=== PATIENT | female | born 1950 | race Caucasian/White ===

== ENCOUNTER 2017-04-24 20:04 | Inpatient (IN) | payer MEDICARE ==
[~2017-04-24] VITALS: Ht 162.6 cm; Wt 73.0 kg
[2017-04-24 20:11] VITALS: BP 152/67; PULSE 97; RESP 18; O2SAT 93
[2017-04-24 20:21] VITALS: TEMP 101
--- NOTE | 2017-04-24 20:22 | PD ---
HPI Chief Complaint: Altered Mental Status Time Seen by Provider: 20:22 Travel History International Travel<30 days: No Contact w/Intl Traveler<30days: No Traveled to known affect area: No History of Present Illness HPI 66-year-old female presents to the emergency department via EMS for evaluation of a fall and fever. Apparently, the patient is running fever for a few days. Today, she was found on the floor by her recliner chair by a family member. The patient states she tripped and fell. She does state that she had her head and is unsure if she lost consciousness. The patient is confused. She knows her name, but does not answer other questions appropriately. The patient denies any neck pain or back pain. No chest pain or abdominal pain. No nausea or vomiting. When family arrived, I was able to obtain more history. According to the daughter, the granddaughter was at home and witnessed the patient's fall. She slid out of her recliner was unable to get up. She blew she's been running fevers for approximately 2 days. She states that she recently came from [place] and she is unsure she is on on her medications. However, she is currently taking metoprolol. The daughter states that she has a history of dementia and hypertension. She states that the patient goes in and out of confusion. PFSH Past Medical History Cardiovascular Problems: Yes (HTN) Diabetes: Yes Social History Alcohol Use: No Tobacco Use: No Substance Use: No Allergies-Medications (Allergen,Severity, Reaction): Coded Allergies: Codeine (Verified Allergy, Unknown, 04/24/17) Reported Meds & Prescriptions Reported Meds & Active Scripts Active Reported Metoprolol Tartrate 37.5 Mg Tab 37.5 Mg PO DAILY Review of Systems Except as stated in HPI: all other systems reviewed are Neg Physical Exam Narrative GENERAL: Well-nourished, well-developed female patient, temp 101.1 rectally. SKIN: Focused skin assessment warm/dry. HEAD: Normocephalic. Atraumatic. EYES: No scleral icterus. No injection or drainage. NECK: Supple, trachea midline. No JVD or lymphadenopathy. CARDIOVASCULAR: Regular rate and rhythm without murmurs, gallops, or rubs. RESPIRATORY: Breath sounds equal bilaterally. No accessory muscle use. Lungs sounds are clear to auscultation. GASTROINTESTINAL: Abdomen soft, non-tender, nondistended. MUSCULOSKELETAL: No cyanosis, or edema. BACK: Nontender without obvious deformity. No CVA tenderness. Data Data Last Documented VS Vital Signs Date Time Temp Pulse Resp B/P Pulse Ox O2 Delivery O2 Flow Rate FiO2 04/24/17 22:20 99.1 89 18 158/67 95 Room Air Orders Complete Blood Count With Diff (04/24/17 20:19) Comprehensive Metabolic Panel (04/24/17 20:19) Creatine Kinase (Cpk) (04/24/17 20:19) Prothrombin Time / Inr (Pt) (04/24/17 20:19) Act Partial Throm Time (Ptt) (04/24/17 20:19) Urinalysis - C+S If Indicated (04/24/17 20:19) Lactic Acid Sepsis Protocol (04/24/17 20:19) Blood Culture (04/24/17 20:19) Chest, Single Ap (04/24/17 20:19) Ct Brain W/O Iv Contrast(Rout) (04/24/17 20:19) Blood Glucose (04/24/17 20:19) Ecg Monitoring (04/24/17 20:19) Iv Access Insert/Monitor (04/24/17 20:19) Oximetry (04/24/17 20:19) Ct Cerv Spine W/O Contrast (04/24/17 ) Cath For Specimen (04/24/17 20:19) Acetaminophen Supp (Tylenol Supp) (04/24/17 20:30) Electrocardiogram (04/24/17 ) Sodium Chlorid 0.9% 500 Ml Inj (Ns 500 M (04/24/17 20:30) Ceftriaxone Inj (Rocephin Inj) (04/24/17 21:00) Azithromycin Inj (Zithromax Inj) (04/24/17 21:00) Admit Order (Ed Use Only) (04/24/17 22:25) Labs Laboratory Tests Test 04/24/17 20:25 White Blood Count 7.1 TH/MM3 Red Blood Count 4.23 MIL/MM3 Hemoglobin 13.1 GM/DL Hematocrit 39.2 % Mean Corpuscular Volume 92.7 FL Mean Corpuscular Hemoglobin 30.9 PG Mean Corpuscular Hemoglobin 33.3 % Concent Red Cell Distribution Width 14.3 % Platelet Count 180 TH/MM3 Mean Platelet Volume 8.0 FL Neutrophils (%) (Auto) 85.3 % Lymphocytes (%) (Auto) 7.3 % Monocytes (%) (Auto) 6.8 % Eosinophils (%) (Auto) 0.2 % Basophils (%) (Auto) 0.4 % Neutrophils # (Auto) 6.0 TH/MM3 Lymphocytes # (Auto) 0.5 TH/MM3 Monocytes # (Auto) 0.5 TH/MM3 Eosinophils # (Auto) 0.0 TH/MM3 Basophils # (Auto) 0.0 TH/MM3 CBC Comment DIFF FINAL Differential Comment Prothrombin Time 11.2 SEC Prothromb Time International 1.0 RATIO Ratio Activated Partial 27.3 SEC Thromboplast Time Urine Color YELLOW Urine Turbidity CLEAR Urine pH 6.0 Urine Specific Center 1.020 Urine Protein TRACE mg/dL Urine Glucose (UA) NEG mg/dL Urine Ketones 40 mg/dL Urine Occult Blood NEG Urine Nitrite NEG Urine Bilirubin NEG Urine Urobilinogen LESS THAN 2.0 MG/DL Urine Leukocyte Esterase NEG Urine RBC 1 /hpf Urine WBC 2 /hpf Urine Squamous Epithelial <1 /hpf Cells Urine Granular Casts 5 /lpf Urine Mucus FEW /lpf Microscopic Urinalysis Comment CATH-CULT NOT IND Sodium Level 143 MEQ/L Potassium Level 3.5 MEQ/L Chloride Level 108 MEQ/L Carbon Dioxide Level 24.5 MEQ/L Anion Gap 11 MEQ/L Blood Urea Nitrogen 16 MG/DL Creatinine 0.63 MG/DL Estimat Glomerular Filtration 95 ML/MIN Rate Random Glucose 117 MG/DL Lactic Acid Level 1.0 mmol/L Calcium Level 8.4 MG/DL Total Bilirubin 0.5 MG/DL Aspartate Amino Transf 34 U/L (AST/SGOT) Alanine Aminotransferase 23 U/L (ALT/SGPT) Alkaline Phosphatase 91 U/L Total Creatine Kinase 159 U/L Total Protein 6.5 GM/DL Albumin 3.2 GM/DL MDM Medical Decision Making Medical Screen Exam Complete: Yes Emergency Medical Condition: Yes Medical Record Reviewed: Yes Interpretation(s) Last Impressions Head CT 04/24/172018 Signed Impressions: Service Date/Time: Monday, April 24, 2017 20:40 - CONCLUSION: Negative noncontrast CT brain. Alexis Acevedo MD Chest X-Ray 04/24/172018 Signed Impressions: Service Date/Time: Monday, April 24, 2017 20:17 - CONCLUSION: Bilateral perihilar and left lower lung no consolidative infiltrates. Alexis Acevedo MD Cervical Spine CT 04/24/17 0000 Signed Impressions: Service Date/Time: Monday, April 24, 2017 20:40 - CONCLUSION: No evidence of compression fracture or spondylolisthesis. Reversal of the upper mid cervical lordosis and hypertrophic degenerative changes in the facet joints without significant bony neural foraminal stenosis. Alexis Acevedo MD Differential Diagnosis Pneumonia versus UTI versus sepsis versus intracranial normality for selection abnormality Narrative Course 66-year-old female presents to the emergency department for evaluation after falling is running a fever. EKG shows sinus rhythm, heart rate 97, no acute ST changes. CBC, CMP, CK, PTT, PTT/INR, UA, lactic acid, blood cultures 2, chest x-ray are ordered and pending. CT the brain and cervical spine are ordered and pending. Patient is given normal saline 500 mL bolus. She received normal saline 400 mL's prior to arrival. Tylenol 650 mg suppository is ordered and pending. EKG shows sinus rhythm, heart rate 97, no acute ST changes. CBC shows WBC of 7.1, neutrophilia of 85.3. CMP shows no acute abnormality. CK is 159. Lactic acid is 1.0. Coags are unremarkable. UA is negative for acute infection. Chest x-ray shows bilateral perihilar and left lower lung no consolidative infiltrates. Ct of the brain is negative. CT of the cervical spine shows no evidence of compression fracture or spondylolisthesis. Patient is given Rocephin 1 g IV and azithromycin 500 mg IV. [facility] is paged for admission. Dr. Fong accepted admission. Sepsis Criteria SIRS Criteria (2 or more): Temp > 100.9 or < 96.8, Heart rate over 90 Sepsis Criteria (SIRS+source): Infect source susp/known Diagnosis Primary Impression: Pneumonia Qualified Code: J18.9 - Pneumonia of both lungs due to infectious organism, unspecified part of lung Additional Impression: Sepsis Qualified Code: A41.9 - Sepsis, due to unspecified organism Admitting Information Admitting Physician Requests: Admit Katherin Weston Apr 24, 2017 20:22 Katherin Weston Apr 24, 2017 20:22
[2017-04-24 20:24] VITALS: O2SAT 93
[2017-04-24] MEDS ORDERED: ACETAMINOPHEN 650 MG SUPP RECTAL ONE (20:30)
[2017-04-24] MEDS ORDERED: SODIUM CHLORIDE 0.9% FLUSH 5 ML FLUSH IV FLUSH PRN (20:30)
[2017-04-24] MEDS ORDERED: SODIUM CHLORID 0.9% 500 ML INJ 500 ML IV ONE (20:30)
--- NOTE | 2017-04-24 20:50 | RADRPT ---
EXAM DATE/TIME: 04/24/2017 20:17 [facility] COMPARISON: No previous studies available for comparison. INDICATIONS : Fever MEDICAL HISTORY : None. SURGICAL HISTORY : None. ENCOUNTER: Initial ACUITY: 1 day PAIN SCORE: 0/10 LOCATION: chest FINDINGS: There is fullness and indistinctness of the central bronchopulmonary markings. There is also non-con solidative infiltrate in the retrocardiac left lower lung. Portion of the lateral left hemidiaphragm is obscured. The right hemidiaphragm is well delineated. The heart is mildly enlarged. Loop recor fan device projects over the lower lateral left chest. CONCLUSION: Bilateral perihilar and left lower lung no consolidative infiltrates. Alexis Acevedo MD on April 24, 2017 at 20:48 Board Certified Radiologist. This report was verified electronically.
[2017-04-24 20:53] LABS: BASOPHIL % 0.4 % (0.0-2.0); EOSINOPHIL % 0.2 % (0.0-4.0); HEMATOCRIT 39.2 % (35.0-46.0); HEMO FLAGS DIFF FINAL; LYMPH % 7.3 % (9.0-44.0); LYMPHOCYTE # 0.5 TH/MM3 (1.0-4.8); MEAN CELL VOLUME 92.7 FL (80.0-100.0); MEAN CORPUSCULAR HEMOGLOBIN 30.9 PG (27.0-34.0); MEAN CORPUSCULAR HGB CONC 33.3 % (32.0-36.0); MONO % 6.8 % (0.0-8.0); NEUT % 85.3 % (16.0-70.0); PLATELET COUNT 180 TH/MM3 (150-450); RED BLOOD COUNT 4.23 MIL/MM3 (4.00-5.30); RED CELL DISTRIBUTION WIDTH 14.3 % (11.6-17.2); WHITE BLOOD COUNT 7.1 TH/MM3 (4.0-11.0)
[2017-04-24 20:56] VITALS: BP 164/72; PULSE 95; RESP 18; O2SAT 93
[2017-04-24] MEDS ORDERED: SODIUM CHLORIDE 0.9% FLUSH 10 ML FLUSH IVF PRN (21:00)
[2017-04-24] MEDS ORDERED: AZITHROMYCIN INJ 500 MG in SODIUM CHLOR 0.9% 250 ML INJ 250 ML IV ONE (21:00)
[2017-04-24] MEDS ORDERED: cefTRIAXone INJ 1,000 MG in SODIUM CHLORIDE 0.9% INJ 100 ML IV ONE (21:00)
--- NOTE | 2017-04-24 21:05 | RADRPT ---
EXAM DATE/TIME: 04/24/2017 20:40 [facility] COMPARISON: No previous studies available for comparison. INDICATIONS : Possible fall, found on floor. Altered mental status. RADIATION DOSE: 47.76 CTDIvol (mGy) MEDICAL HISTORY : Dementia. Hypertension. Diabetes. SURGICAL HISTORY : None. ENCOUNTER: Initial ACUITY: 1 day PAIN SCALE: 0/10 LOCATION: cranial TECHNIQUE: Multiple contiguous axial images were obtained of the head. Using automated exposure control and adj ustment of the mA and/or kV according to patient size, radiation dose was kept as low as reasonably a chievable to obtain optimal diagnostic quality images. DICOM format image data is available electro nically for review and comparison. FINDINGS: CEREBRUM: The ventricles are normal for age. No evidence of midline shift, mass lesion, hemorrhage or acute in farction. No extra-axial fluid collections are seen. POSTERIOR FOSSA: The cerebellum and brainstem are intact. The 4th ventricle is midline. The cerebellopontine angle i s unremarkable. EXTRACRANIAL: The visualized portion of the orbits is intact. SKULL: The calvaria is intact. No evidence of skull fracture. CONCLUSION: Negative noncontrast CT brain. Alexis Acevedo MD on April 24, 2017 at 21:03 Board Certified Radiologist. This report was verified electronically.
[2017-04-24 21:06] LABS: APTT (PATIENT) 27.3 SEC (24.3-30.1); PROTHROMBIN TIME - PATIENT 11.2 SEC (9.8-11.6)
[2017-04-24 21:12] LABS: BLOOD, URINE NEG (NEG); GLUCOSE,URINE NEG (NEG); GRANULAR CAST, URINE 5 /lpf; KETONE, URINE 40 mg/dL (NEG); MUCUS URINE FEW /lpf (OCC); NITRITE,URINE NEG (NEG); SQUAMOUS EPITHELIAL CELL URINE <1 /hpf (0-5); URINE COLOR YELLOW (YELLW/STRAW)
[2017-04-24 21:13] LABS: COMMENT (UR) CATH-CULT NOT IND; CULTURE IF INDICATED CATH CULTURE NOT IND
--- NOTE | 2017-04-24 21:14 | RADRPT ---
EXAM DATE/TIME: 04/24/2017 20:40 [facility] COMPARISON: No previous studies available for comparison. INDICATIONS : Possible fall, found on floor. Altered mental status. RADIATION DOSE: 42.99 CTDIvol (mGy) MEDICAL HISTORY : Dementia. Hypertension. Diabetes. SURGICAL HISTORY : None. ENCOUNTER: Initial ACUITY: 1 day PAIN SCALE: 0/10 LOCATION: neck TECHNIQUE: Volumetric scanning of the cervical spine was performed. Multiplanar reconstructions in the sagittal, coronal and oblique axial planes were performed. Using automated exposure control and adjustment o f the mA and/or kV according to patient size, radiation dose was kept as low as reasonably achievable to obtain optimal diagnostic quality images. DICOM format image data is available electronically f or review and comparison. FINDINGS: There is reversal of the cervical lordosis from C2-C5. No evidence of spondylolisthesis. Vertebral body height is maintained. The atlantoaxial articulation is intact. There is moderate severity hype rtrophic changes in the facet joints bilaterally from C2-C5. No evidence of locked or perched facets . The spinous processes are intact. C2-C3: No fracture seen. Neural foramina are patent. C3-C4: No fracture seen. Neural foramina are patent. C4-C5: No fracture seen. Neural foramina are patent. C5-C6: No fracture seen. Neural foramina are patent. C6-C7: No fracture seen. Neural foramina are patent. C7-T1: No fracture seen. Neural foramina are patent. CONCLUSION: No evidence of compression fracture or spondylolisthesis. Reversal of the upper mid cervical lordosi s and hypertrophic degenerative changes in the facet joints without significant bony neural foraminal stenosis. Alexis Acevedo MD on April 24, 2017 at 21:09 Board Certified Radiologist. This report was verified electronically.
[2017-04-24 21:15] LABS: ALT (GPT) 23 U/L (10-53)
[2017-04-24 21:35] LABS: ALKALINE PHOSPHATASE 91 U/L (45-117); ANION GAP 11 MEQ/L (5-15); AST (GOT) 34 U/L (15-37); BICARBONATE 24.5 MEQ/L (21.0-32.0); BLOOD UREA NITROGEN 16 MG/DL (7-18); CHLORIDE 108 MEQ/L (98-107); CREATINE KINASE 159 U/L (26-192); GLOMERULAR FILTRATION RATE 95 ML/MIN (>89); SODIUM (NA) 143 MEQ/L (136-145); TOTAL BILIRUBIN ADULT 0.5 MG/DL (0.2-1.0)
[2017-04-24 21:36] LABS: POTASSIUM 3.5 MEQ/L (3.5-5.1)
[2017-04-24 22:20] VITALS: BP 158/67; PULSE 89; RESP 18; TEMP 99.1; O2SAT 95
[2017-04-24] MEDS ORDERED: SODIUM CHLORIDE 0.9% FLUSH 10 ML FLUSH IV FLUSH PRN (22:45)
[2017-04-24] MEDS ORDERED: NALOXONE HCL 0.4 MG/ML AMP IV PRN (22:45)
[2017-04-24] MEDS ORDERED: METO-424 PO (22:51)
--- NOTE | 2017-04-24 22:51 | HHI.HP ---
HPI Service [facility] Primary Care Physician No Primary Care Physician Admission Diagnosis pneumonia, sepsis Diagnoses: Chief Complaint: fall at home, and fevers Travel History International Travel<30 Days: No Contact w/Intl Traveler <30 Da: No Traveled to Known Affected Are: No Sepsis Criteria SIRS Criteria (2 or more): Temp > 100.9 or < 96.8, Heart rate over 90 Sepsis Criteria (SIRS+source): Infect source susp/known History of Present Illness Written by ABDI Greenfield acting as scribe for [Hetal] on 04/24/17 at 22: 45. 66 y/o female with a history of dementia and HTN was brought to the ED due to a fall and fevers at home. Patient is only oriented to self, and seems confused on and off, review of history and systems is difficult and likely unreliable. There is no family at bedside for questioning. She states she has been having fevers, nausea, diarrhea and black stools, unsure of reliability. She denies falling down or hitting her head. Denies any chest pain or sob. She is able to state she takes metoprolol for hypertension but unknown dose. Per [employer], patient did say she remembers falling and the granddaughter found her on the floor. For the past 2 days family states she has been having fevers and has noticed swelling in her legs and face. She has just recently been living with family, unsure for how long. Review of Systems ROS Limitations: Poor Historian Past Family Social History Past Medical History Dementia HTN Past Surgical History Eye surgery Right forearm surgery Reported Medications Reported Meds & Active Scripts Active Active Prescriptions or Reported Medications Unobtainable Allergies: Coded Allergies: Codeine (Verified Allergy, Unknown, 04/24/17) Active Ordered Medications Current Medications Medications (Trade) Dose Ordered Sig/Radha Route Start Time Stop Time Status Last Admin (NS Flush) 2 ml UNSCH PRN IV FLUSH 04/24/17 22:45 (NS Flush) 2 ml BID IV FLUSH 04/25/17 09:00 Naloxone HCl 0.4 mg 0.4 mg UNSCH PRN IV 04/24/17 22:45 Ceftriaxone Sodium 2000 mg/ Sodium Chloride 100 ml @ 200 mls/hr Q24H IV 04/25/17 21:00 (Zithromax Inj/ NS 250 ml Inj) 250 ml @ 250 mls/hr Q24H IV 04/25/17 21:00 Family History Patient does not know family history Social History Tobacco use: Quit 3 years ago Alcohol use: Denies Illicit drug use: Denies Physical Exam Vital Signs Vital Signs Date Time Temp Pulse Resp B/P Pulse Ox O2 Delivery O2 Flow Rate FiO2 04/24/17 22:20 99.1 89 18 158/67 95 Room Air 04/24/17 20:56 95 18 164/72 93 Room Air 04/24/17 20:24 93 Room Air 04/24/17 20:21 101.0 04/24/17 20:15 92 16 92 Room Air 04/24/17 20:11 97 18 152/67 93 Physical Exam GENERAL: This is a well-nourished, well-developed patient, in no apparent distress. SKIN: No rashes, ecchymoses or lesions. Cool and dry. HEAD: Atraumatic. Normocephalic. No temporal or scalp tenderness. EYES: Pupils equal round and reactive. Extraocular motions intact. . ENT: Nose without bleeding, purulent drainage or septal hematoma. Airway patent. NECK: Trachea midline. No JVD or lymphadenopathy. Supple, nontender, no meningeal signs. CARDIOVASCULAR: Regular rate and rhythm without murmurs, gallops, or rubs. RESPIRATORY: Clear to auscultation. Breath sounds equal bilaterally. No wheezes , rales, or rhonchi. GASTROINTESTINAL: Abdomen soft, non-tender, nondistended. No hepato-splenomegaly , or palpable masses. No guarding. MUSCULOSKELETAL: No joint tenderness, effusion, or edema noted. No calf tenderness. Bilateral pedal edema +3 NEUROLOGICAL: Awake,alert, oriented to self. Motor and sensory grossly within normal limits. Normal speech. Laboratory Laboratory Tests Test 04/24/17 20:25 White Blood Count 7.1 Red Blood Count 4.23 Hemoglobin 13.1 Hematocrit 39.2 Mean Corpuscular Volume 92.7 Mean Corpuscular Hemoglobin 30.9 Mean Corpuscular Hemoglobin 33.3 Concent Red Cell Distribution Width 14.3 Platelet Count 180 Mean Platelet Volume 8.0 Neutrophils (%) (Auto) 85.3 Lymphocytes (%) (Auto) 7.3 Monocytes (%) (Auto) 6.8 Eosinophils (%) (Auto) 0.2 Basophils (%) (Auto) 0.4 Neutrophils # (Auto) 6.0 Lymphocytes # (Auto) 0.5 Monocytes # (Auto) 0.5 Eosinophils # (Auto) 0.0 Basophils # (Auto) 0.0 CBC Comment DIFF FINAL Differential Comment Prothrombin Time 11.2 Prothromb Time International 1.0 Ratio Activated Partial 27.3 Thromboplast Time Urine Color YELLOW Urine Turbidity CLEAR Urine pH 6.0 Urine Specific [place] 1.020 Urine Protein TRACE Urine Glucose (UA) NEG Urine Ketones 40 Urine Occult Blood NEG Urine Nitrite NEG Urine Bilirubin NEG Urine Urobilinogen LESS THAN 2.0 Urine Leukocyte Esterase NEG Urine RBC 1 Urine WBC 2 Urine Squamous Epithelial <1 Cells Urine Granular Casts 5 Urine Mucus FEW Microscopic Urinalysis Comment CATH-CULT NOT IND Sodium Level 143 Potassium Level 3.5 Chloride Level 108 Carbon Dioxide Level 24.5 Anion Gap 11 Blood Urea Nitrogen 16 Creatinine 0.63 Estimat Glomerular Filtration 95 Rate Random Glucose 117 Lactic Acid Level 1.0 Calcium Level 8.4 Total Bilirubin 0.5 Aspartate Amino Transf 34 (AST/SGOT) Alanine Aminotransferase 23 (ALT/SGPT) Alkaline Phosphatase 91 Total Creatine Kinase 159 Total Protein 6.5 Albumin 3.2 Date/Time Procedure Status Source Growth 04/24/17 20:25 Aerobic Blood Culture Received Blood Peripheral Pending 04/24/17 20:25 Anaerobic Blood Culture Received Blood Peripheral Pending Result Diagram: 04/24/17202404/24/172024 Imaging Last Impressions Head CT 04/24/172018 Signed Impressions: Service Date/Time: Monday, April 24, 2017 20:40 - CONCLUSION: Negative noncontrast CT brain. Alexis Acevedo MD Chest X-Ray 04/24/172018 Signed Impressions: Service Date/Time: Monday, April 24, 2017 20:17 - CONCLUSION: Bilateral perihilar and left lower lung no consolidative infiltrates. Alexis Acevedo MD Cervical Spine CT 04/24/17 0000 Signed Impressions: Service Date/Time: Monday, April 24, 2017 20:40 - CONCLUSION: No evidence of compression fracture or spondylolisthesis. Reversal of the upper mid cervical lordosis and hypertrophic degenerative changes in the facet joints without significant bony neural foraminal stenosis. Alexis Acevedo MD Assessment and Plan Problem List: (1) Sepsis ICD Code: A41.9 Status: Acute (2) Pneumonia ICD Code: J18.9 Status: Acute Assessment and Plan 66 y/o female with a history of dementia and htn was brought to the ED due to a fall and fevers at home. Sepsis per criteria, MAXIMUM TEMPERATURE 101 heart rate 95 suspected pneumonia, lactic 1.0, no leukocytosis Chest x-ray reviewed and shows Bilateral perihilar and left lower lung non consolidative infiltrates. -Antibiotics Rocephin and azithromycin IV -CBC in a.m. -Tylenol for fevers Fall, altered mental status, patient history with dementia Head CT reviewed and was unremarkable -Continue to monitor neuro status Hypertension, chronic -We will reorder home medications metoprolol when dose is known -PRN's if needed DVT prophylaxis: SCDs This note was transcribed by [email or web address] [Leandra Cantrell]. I, Dr. Judd Fong personally performed the history, physical exam, and medical decision making; and confirmed the accuracy of the information in the transcribed note. Authenticated by Dr. Judd Fong on 04/24/17 at 22:45. Discussed Condition With Patient, RN and ED physician Physician Certification 2 Midnight Certification Type: Admission for Inpatient Services Order for Inpatient Services The services are ordered in accordance with Medicare regulations or non- Medicare payer requirements, as applicable. In the case of services not specified as inpatient-only, they are appropriately provided as inpatient services in accordance with the 2-midnight benchmark. Estimated LOS (days): 2 days is the estimated time the patient will need to remain in the hospital, assuming treatment plan goals are met and no additional complications. Post-Hospital Plan: Home Problem Qualifiers (1) Sepsis: Qualified Code: A41.9 - Sepsis, due to unspecified organism (2) Pneumonia: Qualified Code: J18.9 - Pneumonia of both lower lobes due to infectious organism Leandra Cantrell Apr 24, 2017 22:51 Judd Fong MD Apr 25, 2017 07:34
[2017-04-25] VITALS (7 sets, daily range): BP systolic 111–167; BP diastolic 64–73; PULSE 64–88; RESP 16–20; TEMP 97–99.4; O2SAT 93–98
[2017-04-25] MEDS: SODIUM CHLORIDE 0.9% FLUSH 10 ML FLUSH IV FLUSH SCH ×2 (09:00→20:13)
[2017-04-25] MEDS ORDERED: HYDROCHLOROTHIAZIDE 12.5 MG CAP PO ONE (11:00)
[2017-04-25] MEDS ORDERED: MAGNESIUM HYDROXIDE SUSP 30 ML CUP PO ONE (11:00)
--- NOTE | 2017-04-25 11:03 | HHI.PR ---
Subjective Remarks Patient seen this morning around 10 AM. Disoriented. Agreeable. Denies any chestpain or Shortness of breath. Denies any nausea or vomiting. no Family at bedside. Objective Vital Signs Date Time Temp Pulse Resp B/P Pulse Ox O2 Delivery O2 Flow Rate FiO2 04/25/17 08:00 99.4 68 16 158/70 98 04/25/17 08:00 64 04/25/17 04:30 156/70 04/25/17 04:00 97.0 72 18 167/72 94 04/25/17 04:00 Room Air 04/25/17 00:00 99.4 86 20 154/68 94 04/25/17 00:00 Room Air 04/24/17 23:00 Room Air 04/24/17 22:20 99.1 89 18 158/67 95 Room Air 04/24/17 20:56 95 18 164/72 93 Room Air 04/24/17 20:24 93 Room Air 04/24/17 20:21 101.0 04/24/17 20:15 92 16 92 Room Air 04/24/17 20:11 97 18 152/67 93 I/O 04/24/17 04/24/17 04/24/17 04/25/17 04/25/17 04/25/17 06:59 14:59 22:59 06:59 14:59 22:59 Intake Total 1000 ml Output Total 250 ml 75 ml Balance 750 ml -75 ml Intake IV Total 1000 ml Output Urine Total 250 ml 75 ml # Voids 3 # Bowel Movements 0 Result Diagram: 04/24/17202404/24/172024 Objective Remarks GENERAL: Patient sitting up in chair. Appears comfortable. Disoriented, pleasant however SKIN: Warm and dry. HEAD: Normocephalic. EYES: No scleral icterus. No injection or drainage. NECK: Supple, trachea midline. JVD just help to ascertain secondary to adipose tissue. CARDIOVASCULAR: Regular rate and rhythm without murmurs, gallops, or rubs. RESPIRATORY: Breath sounds equal bilaterally. No accessory muscle use. GASTROINTESTINAL: Abdomen soft, non-tender, nondistended. MUSCULOSKELETAL: No cyanosis. Trace bilateral lower extremity edema. BACK: Nontender without obvious deformity. No CVA tenderness. A/P Assessment and Plan =====04/25/17==== BNP, echocardiogram ordered for workup of fluid overload. Labs pending. Advicor thiazide added for afterload reduction. 66 y/o female with a history of dementia and htn was brought to the ED due to a fall and fevers at home. //Sepsis per criteria, MAXIMUM TEMPERATURE 101 heart rate 95 suspected pneumonia , lactic 1.0, no leukocytosis Chest x-ray reviewed and shows Bilateral perihilar and left lower lung non consolidative infiltrates. -continue Antibiotics Rocephin and azithromycin IV -CBC in a.m. -Tylenol for fevers //biLateral pulmonary infiltrates. -8/1 Suspect secondary to CHF. BNP and echocardiogram ordered. //Fall, altered mental status, patient history with dementia Head CT reviewed and was unremarkable -Continue to monitor neuro status //Hypertension, chronic -8/1 HR continues acceptable in the 60s. Started blood pressure in the 150s Add hydrochlorothiazide for afterload reduction. -PRN's if needed DVT prophylaxis: SCDs Discharge Planning lives with family. followup pt reccs Paulie Quintero MD Apr 25, 2017 11:03
--- NOTE | 2017-04-25 12:29 | EKG ---
Date Performed: 04/25/2017 Time Performed: 08:12:39 PTAGE: 66 years EKG: Sinus rhythm , RATE 97 POSSIBLE RIGHT VENTRICULAR CONDUCTION DELAY BORDERLINE ECG NO PREVIOUS TRACING DOCTOR: Chico Ladd Interpretating Date/Time 04/25/2017 12:28:32
[2017-04-25 12:42] LABS: AUTOMATED NEUTROPHIL # 5.7 TH/MM3 (1.8-7.7); BASOPHIL % 0.4 % (0.0-2.0); EOSINOPHIL # 0.1 TH/MM3 (0-0.4); EOSINOPHIL % 0.9 % (0.0-4.0); HEMATOCRIT 40.6 % (35.0-46.0); HEMO FLAGS DIFF FINAL; LYMPH % 12.6 % (9.0-44.0); MEAN CELL VOLUME 91.9 FL (80.0-100.0); MEAN CORPUSCULAR HEMOGLOBIN 30.5 PG (27.0-34.0); MEAN CORPUSCULAR HGB CONC 33.2 % (32.0-36.0); MONO % 10.3 % (0.0-8.0); NEUT % 75.8 % (16.0-70.0); PLATELET COUNT 206 TH/MM3 (150-450); RED BLOOD COUNT 4.42 MIL/MM3 (4.00-5.30); RED CELL DISTRIBUTION WIDTH 14.3 % (11.6-17.2); WHITE BLOOD COUNT 7.6 TH/MM3 (4.0-11.0)
[2017-04-25 13:10] LABS: BICARBONATE 25.5 MEQ/L (21.0-32.0)
[2017-04-25] MEDS ORDERED: POTASSIUM CHLORIDE 10 MEQ CONTROLLED RELEASE TAB PO ONE (13:45)
--- NOTE | 2017-04-25 14:34 | ECHRPT ---
Indication: Heart failure, unspecified CONCLUSIONS The left ventricular systolic function is normal with an estimated ejection fraction in the range of 60-65%. Wall thickness is measured at the upper limits of normal. Normal left ventricular size. Trace mitral valve regurgitation. There is trace tricuspid valve regurgitation. The estimated pulmonary arterial pressure is20 mmHg. Trileaflet aortic valve. Diffuse calcification of the aortic valve. BP: 158 / 70 HR: 64 Rhythm: Sinus MEASUREMENTS (Male / Female) Normal Values Technical Quality:Good 2D ECHO LV Diastolic Diameter PLAX 4.8 cm 4.2 - 5.9 / 3.9 - 5.3 cm LV Systolic Diameter PLAX 3.5 cm IVS Diastolic Thickness 1.1 cm 0.6 - 1.0 / 0.6 - 0.9 cm LVPW Diastolic Thickness 1.1 cm 0.6 - 1.0 / 0.6 - 0.9 cm LV Relative Wall Thickness 0.5 RV Internal Dim ED PLAX 2.1 cm LVOT Diameter 2.1 cm M-MODE Aortic Root Diameter MM 3.2 cm LA Systolic Diameter MM 3.6 cm LA Ao Ratio MM 1.1 AV Cusp Separation MM 2.4 cm DOPPLER AV Peak Velocity 124.0 cm/s AV Peak Gradient 6.2 mmHg LVOT Peak Velocity 122.0 cm/s LVOT Peak Gradient 6.0 mmHg AV Area Cont Eq pk 3.4 cm MR Peak Velocity 312.5 cm/s MR Peak Gradient 39.1 mmHg Mitral E Point Velocity 84.4 cm/s Mitral A Point Velocity 98.2 cm/s Mitral E to A Ratio 0.9 LV E' Lateral Velocity 9.7 cm/s Mitral E to LV E' Lateral Ratio 8.7 LV E' Septal Velocity 7.8 cm/s Mitral E to LV E' Septal Ratio 10.8 TR Peak Velocity 194.0 cm/s TR Peak Gradient 15.1 mmHg PV Peak Velocity 84.2 cm/s PV Peak Gradient 2.8 mmHg FINDINGS LEFT VENTRICLE The left ventricular systolic function is normal with an estimated ejection fraction in the range of 60-65%. Wall thickness is measured at the upper limits of normal. Normal left ventricular size. Trace mitral valve regurgitation. RIGHT VENTRICLE Normal right ventricular size and systolic function. LEFT ATRIUM The left atrial size is normal. RIGHT ATRIUM The right atrial size is normal. ATRIAL SEPTUM Normal atrial septal thickness without atrial level shunting by limited color doppler interrogation. AORTA The aortic root and proximal ascending aorta are normal in size on limited imaging. MITRAL VALVE Trace mitral valve regurgitation. AORTIC VALVE Trileaflet aortic valve. Diffuse calcification of the aortic valve. TRICUSPID VALVE There is trace tricuspid valve regurgitation. The estimated pulmonary arterial pressure is20 mmHg. PULMONARY VALVE The pulmonary valve is not well visualized. VESSELS The inferior vena cava is normal in size. PERICARDIUM No pericardial effusion. Adeola Stone MD, FACC (Electronically Signed) Final Date:25 April 2017 14:34
[2017-04-25] MEDS: cefTRIAXone INJ 2,000 MG in SODIUM CHLORIDE 0.9% INJ 100 ML IV SCH (20:12)
[2017-04-25] MEDS: AZITHROMYCIN INJ 500 MG in SODIUM CHLOR 0.9% 250 ML INJ 250 ML IV SCH (20:17)
[2017-04-26] VITALS (8 sets, daily range): BP systolic 120–153; BP diastolic 57–78; PULSE 78–102; RESP 16–20; TEMP 97.7–99; O2SAT 92–98
[2017-04-26] MEDS: HYDROCHLOROTHIAZIDE 12.5 MG CAP PO SCH (09:08)
[2017-04-26] MEDS: SODIUM CHLORIDE 0.9% FLUSH 10 ML FLUSH IV FLUSH SCH ×2 (09:08→21:36)
[2017-04-26 14:17] LABS: AUTOMATED NEUTROPHIL # 4.9 TH/MM3 (1.8-7.7); BASOPHIL % 0.4 % (0.0-2.0); EOSINOPHIL # 0.2 TH/MM3 (0-0.4); EOSINOPHIL % 2.7 % (0.0-4.0); HEMATOCRIT 41.6 % (35.0-46.0); HEMO FLAGS DIFF FINAL; LYMPH % 20.1 % (9.0-44.0); LYMPHOCYTE # 1.5 TH/MM3 (1.0-4.8); MEAN CORPUSCULAR HGB CONC 33.7 % (32.0-36.0); MONO % 10.4 % (0.0-8.0); NEUT % 66.4 % (16.0-70.0); PLATELET COUNT 210 TH/MM3 (150-450); RED BLOOD COUNT 4.52 MIL/MM3 (4.00-5.30); RED CELL DISTRIBUTION WIDTH 14.5 % (11.6-17.2); WHITE BLOOD COUNT 7.3 TH/MM3 (4.0-11.0)
[2017-04-26 14:34] LABS: BICARBONATE 28.5 MEQ/L (21.0-32.0); MAGNESIUM 2.1 MG/DL (1.5-2.5); POTASSIUM 3.7 MEQ/L (3.5-5.1)
--- NOTE | 2017-04-26 18:46 | HHI.PR ---
Subjective Remarks Patient seen today around 11 AM. Sitting up at nursing station. Appears comfortable. Denies any chest pain or shortness of breath. Denies any dysuria. Again disoriented. Objective Vital Signs Date Time Temp Pulse Resp B/P Pulse Ox O2 Delivery O2 Flow Rate FiO2 04/26/17 16:00 98.2 80 18 153/67 93 04/26/17 13:05 78 04/26/17 12:00 99.0 88 20 121/57 94 04/26/17 09:14 Room Air 04/26/17 08:00 97.7 102 20 150/78 92 04/26/17 04:00 Room Air 04/26/17 04:00 98.6 86 18 130/62 96 04/26/17 00:00 98.7 87 16 120/58 98 04/26/17 00:00 98 Room Air 04/25/17 20:00 73 04/25/17 20:00 Room Air 04/25/17 20:00 98.8 85 18 143/64 94 I/O 04/25/17 04/25/17 04/25/17 04/26/17 04/26/17 04/26/17 07:00 15:00 23:00 07:00 15:00 23:00 Intake Total 960 ml 420 ml 180 ml 600 ml Output Total 75 ml 360 ml Balance -75 ml 960 ml 420 ml -180 ml 600 ml Intake Oral 960 ml 420 ml 180 ml 600 ml Output Urine Total 75 ml 360 ml # Voids 3 6 3 3 # Bowel Movements 0 2 0 1 0 Result Diagram: 04/26/17 1324 04/26/17 1324 Objective Remarks GENERAL: Patient sitting up in chair at nursing station. Appears comfortable. Disoriented, pleasant however SKIN: Warm and dry. HEAD: Normocephalic. EYES: No scleral icterus. No injection or drainage. NECK: Supple, trachea midline. JVD just help to ascertain secondary to adipose tissue. CARDIOVASCULAR: Regular rate and rhythm without murmurs, gallops, or rubs. RESPIRATORY: Breath sounds equal bilaterally. No accessory muscle use. GASTROINTESTINAL: Abdomen soft, non-tender, nondistended. MUSCULOSKELETAL: No cyanosis. Trace bilateral lower extremity edema. BACK: Nontender without obvious deformity. No CVA tenderness. A/P Assessment and Plan =====04/26/17==== BNP only mildly elevated at 217, echocardiogram with normal ejection fraction. Only mild mitral regurgitation. -Hypokalemia resolved -Continue antibiotics for pneumonia -Plans for discharge to SNF tomorrow. -Blood pressure acceptable. Continue hydrochlorothiazide. 66 y/o female with a history of dementia and htn was brought to the ED due to a fall and fevers at home. //Sepsis per criteria, MAXIMUM TEMPERATURE 101 heart rate 95 suspected pneumonia , lactic 1.0, no leukocytosis Chest x-ray reviewed and shows Bilateral perihilar and left lower lung non consolidative infiltrates. -continue Antibiotics Rocephin and azithromycin IV -CBC in a.m. -Tylenol for fevers //biLateral pulmonary infiltrates. -04/25 Suspect secondary to CHF. BNP and echocardiogram ordered. -04/26. Reviewed above. //Fall, altered mental status, patient history with dementia Head CT reviewed and was unremarkable -Continue to monitor neuro status //Hypertension, chronic -04/25 HR continues acceptable in the 60s. Started blood pressure in the 150s Add hydrochlorothiazide for afterload reduction. -PRN's if needed DVT prophylaxis: SCDs Discharge Planning Discharge to alf facility tomorrow. Paulie Quintero MD Apr 26, 2017 18:46
[2017-04-26] MEDS ORDERED: LEVO750T3 PO (18:48)
[2017-04-26] MEDS ORDERED: HYDR12.57 PO (18:48)
[2017-04-26] MEDS: AZITHROMYCIN INJ 500 MG in SODIUM CHLOR 0.9% 250 ML INJ 250 ML IV SCH (21:36)
[2017-04-26] MEDS: cefTRIAXone INJ 2,000 MG in SODIUM CHLORIDE 0.9% INJ 100 ML IV SCH (23:32)
[2017-04-27] VITALS: BP 124/60; PULSE 93; RESP 18; TEMP 99; O2SAT 92
[2017-04-27 04:00] VITALS: BP 144/68; PULSE 91; RESP 18; TEMP 98.9; O2SAT 92
[2017-04-27 08:19] VITALS: BP 135/70; PULSE 74; RESP 18; TEMP 98; O2SAT 99
[2017-04-27 08:40] LABS: AUTOMATED NEUTROPHIL # 4.9 TH/MM3 (1.8-7.7); BASOPHIL % 0.5 % (0.0-2.0); EOSINOPHIL # 0.3 TH/MM3 (0-0.4); EOSINOPHIL % 3.5 % (0.0-4.0); HEMATOCRIT 39.1 % (35.0-46.0); HEMO FLAGS DIFF FINAL; LYMPH % 21.6 % (9.0-44.0); LYMPHOCYTE # 1.6 TH/MM3 (1.0-4.8); MEAN CELL VOLUME 91.1 FL (80.0-100.0); MEAN CORPUSCULAR HEMOGLOBIN 31.1 PG (27.0-34.0); MEAN CORPUSCULAR HGB CONC 34.2 % (32.0-36.0); MONO % 9.6 % (0.0-8.0); NEUT % 64.8 % (16.0-70.0); PLATELET COUNT 211 TH/MM3 (150-450); RED BLOOD COUNT 4.29 MIL/MM3 (4.00-5.30); RED CELL DISTRIBUTION WIDTH 14.5 % (11.6-17.2); WHITE BLOOD COUNT 7.6 TH/MM3 (4.0-11.0)
[2017-04-27 09:09] LABS: BICARBONATE 28.6 MEQ/L (21.0-32.0); MAGNESIUM 2.1 MG/DL (1.5-2.5); POTASSIUM 3.5 MEQ/L (3.5-5.1)
[2017-04-27] MEDS: HYDROCHLOROTHIAZIDE 12.5 MG CAP PO SCH (09:36)
[2017-04-27 12:11] VITALS: BP 142/65; PULSE 92; RESP 18; TEMP 98.8; O2SAT 94
--- NOTE | 2017-04-27 22:24 | HHI.DS ---
Discharge Summary Admission Date Apr 24, 2017 at 22:26 Discharge Date: Apr 27, 2017 Admitting Diagnosis pneumonia, sepsis (1) Sepsis ICD Code: A41.9 (2) Pneumonia ICD Code: J18.9 Procedures no invasive procedures. Brief History - From Admission 66 y/o female with a history of dementia and HTN was brought to the ED due to a fall and fevers at home. Patient is only oriented to self, and seems confused on and off, review of history and systems is difficult and likely unreliable. There is no family at bedside for questioning. She states she has been having fevers, nausea, diarrhea and black stools, unsure of reliability. She denies falling down or hitting her head. Denies any chest pain or sob. She is able to state she takes metoprolol for hypertension but unknown dose. Per [employer], patient did say she remembers falling and the granddaughter found her on the floor. For the past 2 days family states she has been having fevers and has noticed swelling in her legs and face. She has just recently been living with family, unsure for how long. CBC/BMP: 04/27/17 0757 04/27/17 0757 Significant Findings Laboratory Tests Test 04/25/17 04/26/17 04/27/17 11:45 13:24 07:57 Neutrophils (%) (Auto) 75.8 % (16.0-70.0) Monocytes (%) (Auto) 10.3 % 10.4 % 9.6 % (0.0-8.0) (0.0-8.0) (0.0-8.0) Potassium Level 3.0 MEQ/L (3.5-5.1) Chloride Level 108 MEQ/L (98-107) Random Glucose 107 MG/DL 133 MG/DL (74-106) (74-106) B-Type Natriuretic Peptide 217 PG/ML (0-100) Estimat Glomerular Filtration 86 ML/MIN (>89) Rate Albumin 3.1 GM/DL (3.4-5.0) Imaging Last Impressions Head CT 04/24/172018 Signed Impressions: Service Date/Time: Monday, April 24, 2017 20:40 - CONCLUSION: Negative noncontrast CT brain. Alexis Acevedo MD Chest X-Ray 04/24/172018 Signed Impressions: Service Date/Time: Monday, April 24, 2017 20:17 - CONCLUSION: Bilateral perihilar and left lower lung no consolidative infiltrates. Alexis Acevedo MD Cervical Spine CT 04/24/17 Signed Impressions: Service Date/Time: Monday, April 24, 2017 20:40 - CONCLUSION: No evidence of compression fracture or spondylolisthesis. Reversal of the upper mid cervical lordosis and hypertrophic degenerative changes in the facet joints without significant bony neural foraminal stenosis. Alexis Acevedo MD PE at Discharge GENERAL: sitting up on edge of bed. Disoriented as before. SKIN: Warm and dry. HEAD: Normocephalic. EYES: No scleral icterus. No injection or drainage. NECK: Supple, trachea midline. No JVD or lymphadenopathy. CARDIOVASCULAR: Regular rate and rhythm without murmurs, gallops, or rubs. RESPIRATORY: Breath sounds equal bilaterally. No accessory muscle use. GASTROINTESTINAL: Abdomen soft, non-tender, nondistended. MUSCULOSKELETAL: No cyanosis, or edema. BACK: Nontender without obvious deformity. No CVA tenderness. Pt update on day of discharge patient says she feels well. denies any chest pain or shortness of breath. Discussed with daughter at bedside.daughter reports chronic dementia, which has been worsening over the past 2 years.daughter says she is almost back to mental baseline. Hospital Course =====04/26/17==== BNP only mildly elevated at 217, echocardiogram with normal ejection fraction. Only mild mitral regurgitation. -Hypokalemia resolved -Continue antibiotics for pneumonia -Plans for discharge to SNF tomorrow. -Blood pressure acceptable. Continue hydrochlorothiazide. 66 y/o female with a history of dementia and htn was brought to the ED due to a fall and fevers at home. //Sepsis per criteria, MAXIMUM TEMPERATURE 101 heart rate 95 suspected pneumonia , lactic 1.0, no leukocytosis Chest x-ray reviewed and shows Bilateral perihilar and left lower lung non consolidative infiltrates. -continue Antibiotics Rocephin and azithromycin IV -CBC in a.m. -Tylenol for fevers //biLateral pulmonary infiltrates. -04/25 Suspect secondary to CHF. BNP and echocardiogram ordered. -04/26. Reviewed above. //Fall, altered mental status, patient history with dementia Head CT reviewed and was unremarkable -Continue to monitor neuro status //Hypertension, chronic -04/25 HR continues acceptable in the 60s. Started blood pressure in the 150s Add hydrochlorothiazide for afterload reduction. -PRN's if needed DVT prophylaxis: SCDs Pt Condition on Discharge: Good Discharge Disposition: Discharge to SNF Discharge Time: > 30 minutes Discharge Instructions DIET: Follow Instructions for: Heart Healthy Diet Activities you can perform: Regular-No Restrictions Other Activity Instructions: up with supervision New Medications: Levofloxacin (Levofloxacin) 750 Mg Tablet 750 MG PO DAILY Infection Days 5 Ref 0 TAB Hydrochlorothiazide (Hydrochlorothiazide) 12.5 Mg Cap 12.5 MG PO DAILY Blood Pressure Management Days 30 CAP Discontinued Medications: Metoprolol Tartrate (Metoprolol Tartrate) 37.5 Mg Tab 37.5 MG PO DAILY #30 Ref 0 TAB Paulie Quintero MD Apr 27, 2017 22:24
== END 2017-04-27 15:37 | DRG 871 ==
LOC: NEPE 20:04 → NEDA 22:26 → N04B 23:09
PROVIDERS: ADMIT Internal Medicine; ATTEND Internal Medicine
DX: A41.9 Sepsis, unspecified organism (principal); J18.9 Pneumonia, unspecified organism; F03.90 Unspecified dementia, unspecified severity, without behavioral disturbance, psychotic disturbance, mood disturbance, and anxiety; I10 Essential (primary) hypertension; I34.0 Nonrheumatic mitral (valve) insufficiency; E87.6 Hypokalemia; R50.9 Fever, unspecified; E11.9 Type 2 diabetes mellitus without complications; W01.0XXA Fall on same level from slipping, tripping and stumbling without subsequent striking against object, initial encounter; Y92.009 Unspecified place in unspecified non-institutional (private) residence as the place of occurrence of the external cause; Z87.891 Personal history of nicotine dependence
CPT/HCPCS: 70450; 71010; 72125; 80048; 80053; 80069; 81001; 82550; 83605; 83735; 83880; 85025; 85610; 85730; 87040; 93005; 93306; 96361; 96365; 96375; J0456; J0696; J7040; J7050; P9612

== ENCOUNTER 2017-06-11 12:15 | Emergency (ER) | payer MEDICARE ==
[~2017-06-11] VITALS: Ht 165.1 cm; Wt 70.0 kg
[~2017-06-11 12:15] MED LIST: HYDR12.57 PO; LEVO750T3 PO
[2017-06-11 12:29] VITALS: BP 161/69; PULSE 90; RESP 18; TEMP 98; O2SAT 96
[2017-06-11] MEDS ORDERED: SODIUM CHLORIDE 0.9% FLUSH 10 ML FLUSH IV FLUSH PRN (13:15)
--- NOTE | 2017-06-11 13:22 | PD ---
HPI Chief Complaint: Abdominal Pain Time Seen by Provider: 12:49 Travel History International Travel<30 days: No Contact w/Intl Traveler<30days: No Traveled to known affect area: No History of Present Illness HPI 66-year-old female with a history of dementia and hypertension presents to the emergency department via EMS for evaluation of abdominal pain. Patient is a poor historian. She states she has had some abdominal pain for approximately 4- 5 days with associated diarrhea. However, she states she was getting "too much medication" and states that that is why she has diarrhea. Patient also states she has been urinating frequently. Patient states the pain is better at this time. She denies any chest pain to me, but doesn't state that she has been short of breath for approximately a week. Patient denies any fevers or chills. No nausea or vomiting. I'm awaiting her family to give more information. PFSH Past Medical History Cardiovascular Problems: Yes (HTN) Dementia: Yes Diminished Hearing: No Hypertension: Yes Neurologic: Yes Tetanus Vaccination: Unknown Social History Alcohol Use: No Tobacco Use: No Substance Use: No Allergies-Medications (Allergen,Severity, Reaction): Coded Allergies: codeine (Unverified Allergy, Unknown, 06/11/17) Reported Meds & Prescriptions Reported Meds & Active Scripts Active Hydrochlorothiazide 12.5 Mg Cap 12.5 Mg PO DAILY 30 Days Review of Systems Except as stated in HPI: all other systems reviewed are Neg Physical Exam Narrative GENERAL: Well-nourished, well-developed female patient, afebrile. Patient answers my questions appropriately. She is aware that she is in the hospital, knows the year is 2017 and states the president is "DT". SKIN: Focused skin assessment warm/dry. HEAD: Normocephalic. Atraumatic. EYES: No scleral icterus. No injection or drainage. NECK: Supple, trachea midline. No JVD or lymphadenopathy. CARDIOVASCULAR: Regular rate and rhythm without murmurs, gallops, or rubs. RESPIRATORY: Breath sounds equal bilaterally. No accessory muscle use. Lungs sounds are clear to auscultation. GASTROINTESTINAL: Abdomen soft and nondistended. Patient has tenderness to right upper and epigastric regions. MUSCULOSKELETAL: No cyanosis, or edema. BACK: Nontender without obvious deformity. No CVA tenderness. Data Data Last Documented VS Vital Signs Date Time Temp Pulse Resp B/P (MAP) Pulse Ox O2 Delivery O2 Flow Rate FiO2 06/11/17 13:41 16 98 Room Air 06/11/17 12:29 98.0 90 161/69 (99) Orders Orders Complete Blood Count With Diff (06/11/17 13:13) Comprehensive Metabolic Panel (06/11/17 13:13) Lipase (06/11/17 13:13) Prothrombin Time / Inr (Pt) (06/11/17 13:13) Act Partial Throm Time (Ptt) (06/11/17 13:13) Urinalysis - C+S If Indicated (06/11/17 13:13) Ct Abd/Pel W Iv Contrast(Rout) (06/11/17 13:13) Iv Access Insert/Monitor (06/11/17 13:13) Ecg Monitoring (06/11/17 13:13) Oximetry (06/11/17 13:13) Sodium Chloride 0.9% Flush (Ns Flush) (06/11/17 13:15) Electrocardiogram (06/11/17 13:13) Chest, Single Ap (06/11/17 13:13) Creatine Kinase (Cpk) (06/11/17 13:13) Troponin I (06/11/17 13:13) Magnesium (Mg) (06/11/17 13:13) C Diff Toxin Pcr (06/11/17 13:15) Urine Culture (06/11/17 14:21) Iohexol 350 Inj (Omnipaque 350 Inj) (06/11/17 14:49) Labs Laboratory Tests Test 06/11/17 13:20 White Blood Count 8.7 TH/MM3 Red Blood Count 4.48 MIL/MM3 Hemoglobin 13.8 GM/DL Hematocrit 41.6 % Mean Corpuscular Volume 92.9 FL Mean Corpuscular Hemoglobin 30.8 PG Mean Corpuscular Hemoglobin Concent 33.2 % Red Cell Distribution Width 14.0 % Platelet Count 207 TH/MM3 Mean Platelet Volume 9.1 FL Neutrophils (%) (Auto) 78.1 % Lymphocytes (%) (Auto) 13.4 % Monocytes (%) (Auto) 6.9 % Eosinophils (%) (Auto) 1.2 % Basophils (%) (Auto) 0.4 % Neutrophils # (Auto) 6.8 TH/MM3 Lymphocytes # (Auto) 1.2 TH/MM3 Monocytes # (Auto) 0.6 TH/MM3 Eosinophils # (Auto) 0.1 TH/MM3 Basophils # (Auto) 0.0 TH/MM3 CBC Comment DIFF FINAL Differential Comment Prothrombin Time 10.1 SEC Prothromb Time International Ratio 0.9 RATIO Activated Partial Thromboplast Time 25.2 SEC Urine Color YELLOW Urine Turbidity CLEAR Urine pH 6.0 Urine Specific [place] 1.026 Urine Protein 100 mg/dL Urine Glucose (UA) NEG mg/dL Urine Ketones NEG mg/dL Urine Occult Blood NEG Urine Nitrite NEG Urine Bilirubin NEG Urine Urobilinogen LESS THAN 2.0 MG/DL Urine Leukocyte Esterase LARGE Urine RBC 1 /hpf Urine WBC LESS THAN 1 /hpf Urine Squamous Epithelial Cells <1 /hpf Urine Bacteria RARE /hpf Urine Mucus FEW /lpf Microscopic Urinalysis Comment CULT NOT INDICATED Blood Urea Nitrogen 23 MG/DL Creatinine 0.66 MG/DL Random Glucose 88 MG/DL Total Protein 6.8 GM/DL Albumin 3.2 GM/DL Calcium Level 8.4 MG/DL Magnesium Level 1.8 MG/DL Alkaline Phosphatase 109 U/L Aspartate Amino Transf (AST/SGOT) 23 U/L Alanine Aminotransferase (ALT/SGPT) 24 U/L Total Bilirubin 0.3 MG/DL Sodium Level 141 MEQ/L Potassium Level 3.8 MEQ/L Chloride Level 105 MEQ/L Carbon Dioxide Level 27.7 MEQ/L Anion Gap 8 MEQ/L Estimat Glomerular Filtration Rate 90 ML/MIN Total Creatine Kinase 63 U/L Troponin I LESS THAN 0.02 NG/ML Lipase 359 U/L MDM Medical Decision Making Medical Screen Exam Complete: Yes Emergency Medical Condition: Yes Medical Record Reviewed: Yes Interpretation(s) Last Impressions Chest X-Ray 06/11/171312 Signed Impressions: Service Date/Time: Sunday, June 11, 2017 13:25 - CONCLUSION: No acute disease. Nato Aguayo MD Abdomen/Pelvis CT 06/11/171312 Signed Impressions: Service Date/Time: Sunday, June 11, 2017 14:40 - CONCLUSION: 1. No definite CT finding to explain patient's symptoms. 2. Moderate colonic diverticulosis without significant inflammatory change to suggest diverticulitis. 3. 2.7 x 3.1 cm infrarenal aortic aneurysm. 4. Multiple bilateral renal cysts. A dominant cyst in the superior pole of the left kidney measuring 2.9 x 2.8 cm demonstrates indeterminate density. Statistically, this reflects a hemorrhagic/proteinaceous cyst. Followup ultrasound examinations may be performed in 6-12 months as clinically warranted. Santo Shahid MD Differential Diagnosis pancreatitis vs. cholecystitis vs. UTI vs. diverticulitis vs. pyelonephritis Narrative Course 66-year-old female presents to the emergency department for evaluation of abdominal pain for the past 4-5 days. She also reports diarrhea and shortness of breath. She does appear well on exam. She states her symptoms are mild at this time. EKG, CBC, CMP, lipase, magnesium, CK, troponin, PTT, PT/INR, stool for C. difficile are ordered and pending. Chest x-ray and CT abdomen/pelvis with IV contrast are ordered and pending. EKG shows SR, no acute ST changes. CBC shows no acute abnormality. CMP shows no acute abnormality. Magnesium is 1.8. CK is 63. Troponin is less than 0.02. Lipase is 359. Coags are unremarkable. UA shows large leukocyte esterase, rare bacteria, culture not indicated. Urine culture is ordered. Chest x-ray shows no acute disease. CT abdomen/pelvis shows 1. No definite CT finding to explain patient's symptoms; 2. Moderate colonic diverticulosis without significant inflammatory change to suggest diverticulitis; 3. 2.7 x 3.1 cm infrarenal aortic aneurysm; 4. Multiple bilateral renal cysts. A dominant cyst in the superior pole of the left kidney measuring 2.9 x 2.8 cm demonstrates indeterminate density. Statistically, this reflects a hemorrhagic/ proteinaceous cyst. Followup ultrasound examinations may be performed in 6-12 months as clinically warranted. Upon reexamination, patient states that she is pain-free. She states that she has not had a bowel movement since early this morning. Patient is asking for food and juice. She would like to go home. I discussed all findings with my attending physician, Dr. Levine, who agrees with plan and disposition. I discussed the results of the CT abdomen/pelvis with her and she will be given a copy of her CT report. She is instructed to follow-up with vascular surgeon regarding 2.7 x 3.1 cm infrarenal aortic aneurysm. She is a father primary care physician regarding multiple bilateral renal cysts. She verbalizes agreement and understanding. Her daughter also be informed of these findings as well which she comes to pickle maker the patient. The patient does have mild UTI with some bacteria, large leukocyte esterase. She'll be discharged a prescription for Macrobid. She is to follow with her physician or return here for any acute worsening of symptoms. Patient verbalizes agreement and understanding. The patient was discharged in stable condition with instructions, including return instructions and follow up instructions. Diagnosis Primary Impression: UTI (urinary tract infection) Qualified Codes: N30.00 - Acute cystitis without hematuria Referrals: Yogesh Bond MD call for appointment Primary Care Physician Patient Instructions: General Instructions, Urinary Tract Infection in Women ( ED) Additional Instructions: Take Macrobid as directed until gone. Follow-up with vascular surgery. Dr. Bond is our vascular surgeon onion tier today. Her CT scan shows a 2.7 x 3.1 cm infrarenal aortic aneurysm. He should follow up with a vascular surgeon regarding this. Follow-up with your primary care physician for follow-up ultrasound of the kidneys in 6-12 months due to bilateral cyst. Follow-up with your primary care physician. Return to the emergency department for any acute worsening of symptoms. Med/Other Pt SpecificInfo: Prescription(s) given Scripts Nitrofurantoin Monohydrate Macrocrystals (Macrobid) 100 Mg Capsule 100 MG PO BID for Infection, #14 CAP 0 Refills Prov: Katherin Weston 06/11/17 Disposition: 01 DISCHARGE HOME Condition: Stable Katherin Weston Jun 11, 2017 13:22
[2017-06-11 13:41] VITALS: RESP 16; O2SAT 98
--- NOTE | 2017-06-11 13:59 | RADRPT ---
EXAM DATE/TIME: 06/11/2017 13:25 [facility] COMPARISON: CHEST SINGLE AP, April 24, 2017, 20:17. INDICATIONS : Shortness of breath and cough. MEDICAL HISTORY : None. SURGICAL HISTORY : Loop recorder. ENCOUNTER: Initial ACUITY: 4 - 6 days PAIN SCORE: 0/10 LOCATION: Bilateral chest FINDINGS: The heart size is normal. There is a loop recorder seen. There is minimal stable linear density at th e lateral left base likely related to scarring or atelectasis. The lungs are otherwise clear. No eff usion is seen. CONCLUSION: No acute disease. Nato Aguayo MD on June 11, 2017 at 13:57 Board Certified Radiologist. This report was verified electronically.
[2017-06-11 14:03] LABS: AUTOMATED NEUTROPHIL # 6.8 TH/MM3 (1.8-7.7); BASOPHIL % 0.4 % (0.0-2.0); EOSINOPHIL # 0.1 TH/MM3 (0-0.4); EOSINOPHIL % 1.2 % (0.0-4.0); HEMATOCRIT 41.6 % (35.0-46.0); HEMO FLAGS DIFF FINAL; LYMPH % 13.4 % (9.0-44.0); LYMPHOCYTE # 1.2 TH/MM3 (1.0-4.8); MEAN CELL VOLUME 92.9 FL (80.0-100.0); MEAN CORPUSCULAR HEMOGLOBIN 30.8 PG (27.0-34.0); MEAN CORPUSCULAR HGB CONC 33.2 % (32.0-36.0); MONO % 6.9 % (0.0-8.0); NEUT % 78.1 % (16.0-70.0); PLATELET COUNT 207 TH/MM3 (150-450); RED BLOOD COUNT 4.48 MIL/MM3 (4.00-5.30); WHITE BLOOD COUNT 8.7 TH/MM3 (4.0-11.0)
[2017-06-11 14:06] LABS: BACTERIA, URINE RARE /hpf; BLOOD, URINE NEG (NEG); COMMENT (UR) CULT NOT INDICATED; CULTURE IF INDICATED CULT NOT INDICATED; GLUCOSE,URINE NEG (NEG); KETONE, URINE NEG (NEG); MUCUS URINE FEW /lpf (OCC); NITRITE,URINE NEG (NEG); SQUAMOUS EPITHELIAL CELL URINE <1 /hpf (0-5); URINE COLOR YELLOW (YELLW/STRAW)
[2017-06-11 14:09] LABS: ALT (GPT) 24 U/L (10-53); ANION GAP 8 MEQ/L (5-15); AST (GOT) 23 U/L (15-37); BICARBONATE 27.7 MEQ/L (21.0-32.0); BLOOD UREA NITROGEN 23 MG/DL (7-18); CHLORIDE 105 MEQ/L (98-107); GLOMERULAR FILTRATION RATE 90 ML/MIN (>89); MAGNESIUM 1.8 MG/DL (1.5-2.5); POTASSIUM 3.8 MEQ/L (3.5-5.1); SODIUM (NA) 141 MEQ/L (136-145)
[2017-06-11 14:11] LABS: APTT (PATIENT) 25.2 SEC (24.3-30.1); INTERNATIONAL NORMALIZED RATIO 0.9 RATIO; PROTHROMBIN TIME - PATIENT 10.1 SEC (9.8-11.6)
[2017-06-11 14:13] LABS: ALKALINE PHOSPHATASE 109 U/L (45-117); CREATINE KINASE 63 U/L (26-192); TOTAL BILIRUBIN ADULT 0.3 MG/DL (0.2-1.0)
[2017-06-11] MEDS ORDERED: IOHEXOL 350 MG/ML 10 ML VIAL (for RAD DIAG) IVCONTRAST ONE (14:49)
--- NOTE | 2017-06-11 15:24 | RADRPT ---
EXAM DATE/TIME: 06/11/2017 14:40 [facility] COMPARISON: No previous studies available for comparison. INDICATIONS : Abdominal pain with diarrhea. IV CONTRAST: 90 cc Omnipaque 350 (iohexol) IV ORAL CONTRAST: No oral contrast ingested. RADIATION DOSE: 13.33 CTDIvol (mGy) MEDICAL HISTORY : Cardiovascular disease. Dementia. Hypertension. SURGICAL HISTORY : None. ENCOUNTER: Initial ACUITY: 1 day PAIN SCALE: 7/10 LOCATION: abdominal. TECHNIQUE: Volumetric scanning of the abdomen and pelvis was performed. Using automated exposure control and ad justment of the mA and/or kV according to patient size, radiation dose was kept as low as reasonably achievable to obtain optimal diagnostic quality images. DICOM format image data is available electro nically for review and comparison. FINDINGS: LOWER LUNGS: The visualized lower lungs are clear. LIVER: Process portions of liver are grossly unremarkable. Gallbladder is surgically absent. Mild extra hepa tic ductal dilatation likely related to reservoir effect. SPLEEN: Normal size without lesion. PANCREAS: Within normal limits. KIDNEYS: Kidneys demonstrate symmetrical enhancement without evidence for radiopaque renal calculi or hydronep hrosis. Indeterminate density 2.9 x 2.8 cm cystic lesion in the super pole of the left kidney. Multip le additional cysts bilaterally with the largest on the right measuring 2.9 x 3.0 cm. ADRENAL GLANDS: Within normal limits. VASCULAR: Diffuse atherosclerotic calcific patient of the infrarenal aorta. Fusiform infrarenal aortic aneurysm measuring 2.7 x 3.1 cm. BOWEL/MESENTERY: Moderate sigmoid diverticulosis with scattered colonic diverticula in the distal transverse and desce nding colon. Bowel otherwise grossly unremarkable without evidence for obstruction. No pneumatosis or free air. No ascites or pleural fluid collection. ABDOMINAL WALL: Small fat containing periumbilical anterior abdominal wall hernia. RETROPERITONEUM: There is no lymphadenopathy. BLADDER: No wall thickening or mass. REPRODUCTIVE: Prominent uterus with multiple apparent uterine leiomyoma. INGUINAL: There is no lymphadenopathy or hernia. MUSCULOSKELETAL: Posterior phill and screw fixation and laminectomies at L4-S1. No focal abnormal lytic or blastic bony lesions. CONCLUSION: 1. No definite CT finding to explain patient's symptoms. 2. Moderate colonic diverticulosis without significant inflammatory change to suggest diverticulitis. 3. 2.7 x 3.1 cm infrarenal aortic aneurysm. 4. Multiple bilateral renal cysts. A dominant cyst in the superior pole of the left kidney measuring 2.9 x 2.8 cm demonstrates indeterminate density. Statistically, this reflects a hemorrhagic/proteinac eous cyst. Followup ultrasound examinations may be performed in 6-12 months as clinically warranted. Santo Shahid MD on June 11, 2017 at 15:15 Board Certified Radiologist. This report was verified electronically.
[2017-06-11] MEDS ORDERED: MACR100C2 PO (15:46)
--- NOTE | 2017-06-11 19:15 | EKG ---
Date Performed: 06/11/2017 Time Performed: 14:08:26 PTAGE: 66 years EKG: Sinus rhythm NORMAL ECG PREVIOUS TRACING : 04/25/2017 08.12 image not available DOCTOR: Yusuf Garcia Interpretating Date/Time 06/11/2017 19:14:38
== END 2017-06-11 16:21 | disposition home or self-care (01) ==
LOC: NEPC 12:15
DX: N39.0 Urinary tract infection, site not specified (principal); I10 Essential (primary) hypertension; F03.90 Unspecified dementia, unspecified severity, without behavioral disturbance, psychotic disturbance, mood disturbance, and anxiety; R06.02 Shortness of breath
CPT/HCPCS: 71010; 74177; 80053; 81001; 82550; 83690; 83735; 84484; 85025; 85610; 85730; 87086; 93005; 99285; Q9967

== ENCOUNTER 2017-06-19 14:13 | Emergency (ER) | payer MEDICARE ==
[~2017-06-19] VITALS: Ht 170.2 cm; Wt 65.0 kg
[~2017-06-19 14:13] MED LIST changes: -LEVO750T3 PO; +MACR100C2 PO
[2017-06-19 14:58] VITALS: BP 178/78; PULSE 87; RESP 18; TEMP 97.9; O2SAT 98
[2017-06-19] MEDS ORDERED: DONE10TA7 PO (15:02)
[2017-06-19] MEDS ORDERED: BUSP10TA PO (15:02)
--- NOTE | 2017-06-19 15:29 | PD ---
HPI Chief Complaint: Headache Time Seen by Provider: 14:57 Travel History International Travel<30 days: No Contact w/Intl Traveler<30days: No Traveled to known affect area: No History of Present Illness HPI This patient's daughter called paramedics because she was concerned about her mother's blood pressure. On arrival is 178 systolic. Patient has history of MS and dementia. She complains of some general malaise and just not feeling well. She is very vague. She is not having any acute pain. No acute neurologic deficit. She has some generalized weakness but that's chronic. She recently finished a course of physical therapy. She uses a walker to get around. Severity is moderate. Duration one week. She says she saw her physician 4 days ago but can't recall what was discussed. No alleviating factors. No exacerbating factors PFSH Past Medical History Cardiovascular Problems: Yes (HTN) Dementia: Yes Diabetes: Yes Patient Takes Glucophage: Yes Diminished Hearing: No Hypertension: Yes Neurologic: Yes ?: Not Social History Alcohol Use: No Tobacco Use: No Substance Use: No Allergies-Medications (Allergen,Severity, Reaction): Coded Allergies: codeine (Unverified Allergy, Unknown, 06/11/17) Reported Meds & Prescriptions Reported Meds & Active Scripts Active Hydrochlorothiazide 12.5 Mg Cap 12.5 Mg PO DAILY 30 Days Reported Buspirone (Buspirone HCl) 10 Mg Tab 10 Mg PO DAILY Donepezil 10 Mg Tab 10 Mg PO HS Review of Systems General / Constitutional: No: Fever Eyes: No: Visual changes HENT: No: Headaches Cardiovascular: No: Chest Pain or Discomfort Respiratory: No: Shortness of Breath Gastrointestinal: No: Abdominal Pain Genitourinary: No: Dysuria Musculoskeletal: Positive: Weakness, No: Pain Skin: No Rash Neurologic: Positive: Weakness Psychiatric: No: Depression Endocrine: No: Polydipsia Hematologic/Lymphatic: No: Easy Bruising Physical Exam Narrative GENERAL: Well-nourished, well-developed patient in no apparent distress. SKIN: Focused skin assessment reveals no rash and nodules. Skin is Warm and dry. HEAD: Atraumatic. Normocephalic. EYES: Pupils equal and round. No scleral icterus. No injection or drainage. ENT: No nasal bleeding or discharge. Mucous membranes pink and moist. NECK: Trachea midline. No JVD. CARDIOVASCULAR: Regular rate and rhythm. No murmur appreciated. RESPIRATORY: No accessory muscle use. Clear to auscultation. Breath sounds equal bilaterally. GASTROINTESTINAL: Abdomen soft, non-tender, nondistended. Hepatic and splenic margins not palpable. MUSCULOSKELETAL: No obvious deformities. No clubbing. No cyanosis. No edema. NEUROLOGICAL: Awake and alert. No obvious cranial nerve deficits. Motor grossly within normal limits. Normal speech. PSYCHIATRIC: Appropriate mood and affect; insight and judgment reduced Data Data Last Documented VS Vital Signs Date Time Temp Pulse Resp B/P (MAP) Pulse Ox O2 Delivery O2 Flow Rate FiO2 06/19/17 15:50 72 18 144/68 (93) 95 Room Air 06/19/17 14:58 97.9 Orders Orders Iv Access Insert/Monitor (06/19/17 15:19) Complete Blood Count With Diff (06/19/17 15:19) Basic Metabolic Panel (Bmp) (06/19/17 15:19) Urinalysis - C+S If Indicated (06/19/17 15:19) Labs Laboratory Tests Test 06/19/17 14:55 White Blood Count 10.5 TH/MM3 Red Blood Count 4.68 MIL/MM3 Hemoglobin 14.2 GM/DL Hematocrit 43.6 % Mean Corpuscular Volume 93.1 FL Mean Corpuscular Hemoglobin 30.4 PG Mean Corpuscular Hemoglobin Concent 32.6 % Red Cell Distribution Width 14.0 % Platelet Count 250 TH/MM3 Mean Platelet Volume 8.1 FL Neutrophils (%) (Auto) 77.6 % Lymphocytes (%) (Auto) 15.2 % Monocytes (%) (Auto) 6.3 % Eosinophils (%) (Auto) 0.5 % Basophils (%) (Auto) 0.4 % Neutrophils # (Auto) 8.2 TH/MM3 Lymphocytes # (Auto) 1.6 TH/MM3 Monocytes # (Auto) 0.7 TH/MM3 Eosinophils # (Auto) 0.0 TH/MM3 Basophils # (Auto) 0.0 TH/MM3 CBC Comment DIFF FINAL Differential Comment Urine Color YELLOW Urine Turbidity CLEAR Urine pH 6.0 Urine Specific [place] 1.019 Urine Protein NEG mg/dL Urine Glucose (UA) NEG mg/dL Urine Ketones NEG mg/dL Urine Occult Blood NEG Urine Nitrite NEG Urine Bilirubin NEG Urine Urobilinogen LESS THAN 2.0 MG/DL Urine Leukocyte Esterase NEG Urine RBC 1 /hpf Urine WBC LESS THAN 1 /hpf Urine Mucus FEW /lpf Microscopic Urinalysis Comment CULT NOT INDICATED Blood Urea Nitrogen 21 MG/DL Creatinine 0.73 MG/DL Random Glucose 93 MG/DL Calcium Level 8.9 MG/DL Sodium Level 138 MEQ/L Potassium Level 4.2 MEQ/L Chloride Level 105 MEQ/L Carbon Dioxide Level 26.8 MEQ/L Anion Gap 6 MEQ/L Estimat Glomerular Filtration Rate 80 ML/MIN MDM Medical Decision Making Medical Screen Exam Complete: Yes Emergency Medical Condition: Yes Medical Record Reviewed: Yes Differential Diagnosis Dementia, depression, UTI, dehydration, MS Narrative Course I have reviewed the patient's electronic medical record. 66-year-old sent here for blood pressure evaluation but also having some vague malaise with history of MS and dementia. IV placed CBC is normal Metabolic profile shows nothing emergent Urinalysis is clean I don't detect any acute neurologic deficit. She has a generalized type weakness. She reports this is usual for her. On recheck blood pressures 144/68 Stable for outpatient follow-up Workup is nonspecific Diagnosis Primary Impression: Elevated blood pressure reading Additional Impressions: Generalized weakness Malaise Additional Instructions: The patient was advised to follow up with their physician and return if they worsen. Med/Other Pt SpecificInfo: Other Disposition: 01 DISCHARGE HOME Condition: Stable Irineo Casillas MD Jun 19, 2017 15:29
[2017-06-19 15:38] LABS: AUTOMATED NEUTROPHIL # 8.2 TH/MM3 (1.8-7.7); BASOPHIL % 0.4 % (0.0-2.0); EOSINOPHIL % 0.5 % (0.0-4.0); HEMATOCRIT 43.6 % (35.0-46.0); HEMO FLAGS DIFF FINAL; LYMPH % 15.2 % (9.0-44.0); LYMPHOCYTE # 1.6 TH/MM3 (1.0-4.8); MEAN CELL VOLUME 93.1 FL (80.0-100.0); MEAN CORPUSCULAR HEMOGLOBIN 30.4 PG (27.0-34.0); MEAN CORPUSCULAR HGB CONC 32.6 % (32.0-36.0); MONO % 6.3 % (0.0-8.0); NEUT % 77.6 % (16.0-70.0); PLATELET COUNT 250 TH/MM3 (150-450); RED BLOOD COUNT 4.68 MIL/MM3 (4.00-5.30); WHITE BLOOD COUNT 10.5 TH/MM3 (4.0-11.0)
[2017-06-19 15:47] LABS: BLOOD, URINE NEG (NEG); GLUCOSE,URINE NEG (NEG); KETONE, URINE NEG (NEG); MUCUS URINE FEW /lpf (OCC); NITRITE,URINE NEG (NEG); URINE COLOR YELLOW (YELLW/STRAW)
[2017-06-19 15:48] LABS: COMMENT (UR) CULT NOT INDICATED; CULTURE IF INDICATED CULT NOT INDICATED
[2017-06-19 15:50] VITALS: BP 144/68; PULSE 72; RESP 18; O2SAT 95
[2017-06-19 16:02] LABS: BICARBONATE 26.8 MEQ/L (21.0-32.0); POTASSIUM 4.2 MEQ/L (3.5-5.1)
== END 2017-06-19 19:38 | disposition home or self-care (01) ==
LOC: NEDAMB 14:13 → NEPD 19:38
DX: R03.0 Elevated blood-pressure reading, without diagnosis of hypertension (principal); R53.1 Weakness; F03.90 Unspecified dementia, unspecified severity, without behavioral disturbance, psychotic disturbance, mood disturbance, and anxiety; I10 Essential (primary) hypertension; E11.9 Type 2 diabetes mellitus without complications
CPT/HCPCS: 80048; 81001; 85025; 99283

== ENCOUNTER 2017-11-04 18:29 | Emergency (ER) | payer MEDICARE ==
[~2017-11-04 18:29] MED LIST changes: +BUSP10TA PO; +DONE10TA7 PO; -MACR100C2 PO
[2017-11-04 18:46] VITALS: BP 134/71; PULSE 89; RESP 18; TEMP 97.9; O2SAT 98
--- NOTE | 2017-11-04 20:28 | PD ---
HPI Chief Complaint: Laceration/Skin Injury Time Seen by Provider: 20:16 Travel History International Travel<30 days: No Contact w/Intl Traveler<30days: No Traveled to known affect area: No History of Present Illness HPI Patient is a 67-year-old female presenting to emergency department for evaluation of a laceration to her right middle finger. Patient's finger was closed in a household door which is how she sustained the injury. Patient has no other injuries to report has no other complaints. She reports pain in the fingers a 7 out of 10 and is throbbing. Symptom onset was sudden, there are no alleviating factors. Pain is exacerbated to touch. Patient has underlying dementia, she was brought by EMS for evaluation. Patient was babysitting her grandchildren when the accident occurred, she states that her grandchild close a door too fast and caught her fingers. PFSH Past Medical History Cardiovascular Problems: Yes (HTN) Dementia: Yes Diabetes: Yes Patient Takes Glucophage: No (uto) Diminished Hearing: No Hypertension: Yes Neurologic: Yes Tetanus Vaccination: Unknown Influenza Vaccination: No Past Surgical History Surgical History: Unable to Obtain Social History Alcohol Use: No Tobacco Use: No Substance Use: No Allergies-Medications (Allergen,Severity, Reaction): Coded Allergies: codeine (Unverified Allergy, Unknown, 11/04/17) Reported Meds & Prescriptions Reported Meds & Active Scripts Active Keflex (Cephalexin) 500 Mg Cap 500 Mg PO Q12H 5 Days Hydrochlorothiazide 12.5 Mg Cap 12.5 Mg PO DAILY 30 Days Reported Buspirone (Buspirone HCl) 10 Mg Tab 10 Mg PO DAILY Donepezil 10 Mg Tab 10 Mg PO HS Review of Systems Except as stated in HPI: all other systems reviewed are Neg Skin: Positive Change in Pigmentation, Positive Other (laceration) Physical Exam Narrative GENERAL: Developed, well-nourished, alert female. Presenting in no acute distress. SKIN: Warm and dry. Laceration to right middle finger tip on the palmar aspect HEAD: Normocephalic. EYES: No scleral icterus. No injection or drainage. NECK: Supple, trachea midline. No JVD or lymphadenopathy. CARDIOVASCULAR: Regular rate and rhythm without murmurs, gallops, or rubs. RESPIRATORY: Breath sounds equal bilaterally. No accessory muscle use. GASTROINTESTINAL: Abdomen soft, non-tender, nondistended. MUSCULOSKELETAL: No cyanosis, or edema. BACK: Nontender without obvious deformity. No CVA tenderness. Data Data Last Documented VS Vital Signs Date Time Temp Pulse Resp B/P (MAP) Pulse Ox O2 Delivery O2 Flow Rate FiO2 11/04/17 21:11 89 22 137/64 (88) 94 Room Air 11/04/17 18:46 97.9 Orders Orders Hand, Limited (2vws) (11/04/17 ) Tetanus/Diphtheria Tox Adult (Tetanus/Di (11/04/17 20:30) Bupivacaine Pf 0.5% Inj (Marcaine Pf 0.5 (11/04/17 20:30) Lidocaine Pf 1% Inj (Xylocaine-Mpf 1% In (11/04/17 21:57) Ed Discharge Order (11/04/17 22:13) Cephalexin (Keflex) (11/04/17 22:15) Acetaminophen (Tylenol) (11/04/17 22:15) MDM Medical Decision Making Medical Screen Exam Complete: Yes Emergency Medical Condition: Yes Interpretation(s) Vital Signs Date Time Temp Pulse Resp B/P (MAP) Pulse Ox O2 Delivery O2 Flow Rate FiO2 11/04/17 18:46 97.9 89 18 134/71 (92) 98 Room Air Differential Diagnosis Distal tuft fracture versus contusion versus laceration versus skin avulsion versus other Narrative Course Patient is a 67-year-old female presented to the emergency department for evaluation of a laceration to her right middle finger. Exam is consistent with a partial fingertip avulsion, x-ray shows a distal tuft fracture, there is a possible distal tuft fracture on the right fifth finger. Please see procedure for laceration repair. Patient will be placed in a finger cage, she was given dose of Keflex and acetaminophen in the emergency department. She is advised follow-up with her primary doctor in 7-10 days to have stitches removed. She was encouraged to return to emergency department immediately for any new or worsening symptoms. Discharge instructions will also be discussed with patient' s daughter when she arrives in the emergency department. Procedures Procedure Narrative LACERATION LOCATION: Right middle finger pad LENGTH: 1 meter NUMBER OF STITCHES/JOHN: 5 stitches REPAIR: The area of the laceration was prepped with Betadine and sterilely draped. The laceration was infiltrated with 1% lidocaine. The wound was copiously irrigated and explored without evidence of foreign body, tendon injury or neurovascular injury. The wound was closed using 6-0 Prolene. This was a 1 layer repair. A sterile dressing was applied. The patient was advised to keep the dressing clean and dry. Patient tolerated the procedure well. Diagnosis Primary Impression: Open fracture of tuft of distal phalanx of finger Referrals: Hand Surgeon 1 week Primary Care Physician 3 days Patient Instructions: Care For Your Stitches (ED), Finger Fracture (DC), Finger Laceration (ED), General Instructions Additional Instructions: Stitches will need to be removed in 7-10 days, keep sutures clean and dry, do not submerge and water Follow-up with her primary doctor Follow-up with hand surgeon Complete course of antibiotics as prescribed Return to emergency department for any new or worsening symptoms Med/Other Pt SpecificInfo: Prescription(s) given Scripts Cephalexin (Keflex) 500 Mg Cap 500 MG PO Q12H for Infection for 5 Days, #10 CAP 0 Refills Prov: Janice Kenney 11/04/17 Disposition: 01 DISCHARGE HOME Condition: Stable Janice Kenney Nov 04, 2017 20:28
[2017-11-04] MEDS ORDERED: BUPIVACAINE HCL PF 0.5% 10 ML VIAL INFIL ONE (20:30)
[2017-11-04] MEDS ORDERED: TETANUS/DIPHTHERIA TOXOID ADULT 0.5 ML VIAL IM ONE (20:30)
--- NOTE | 2017-11-04 20:57 | RADRPT ---
EXAM DATE/TIME: 11/04/2017 20:39 [facility] COMPARISON: No previous studies available for comparison. INDICATIONS : Right hand pain and laceration. Patient states right hand was shut in door. Laceration on third digit . MEDICAL HISTORY : Multiple sclerosis. Cardiovascular disease. Dementia. Hypertension. SURGICAL HISTORY : None. ENCOUNTER: Initial ACUITY: 1 day PAIN SCORE: 4/10 LOCATION: Right hand. FINDINGS: There is mild fragmentation of the distal tuft of the 3rd digit and soft tissue injury adjacent. No radiopaque foreign bodies. Possible fracture of the tuft of the distal phalanx of the 5th digit. Th e remainder of the osseous structures of the hand are intact. Stopped CONCLUSION: Fracture of the tip of the 3rd distal phalanx tuft. Possible fracture of the distal tuft of the 5th distal phalanx. Alexis Acevedo MD on November 04, 2017 at 20:53 Board Certified Radiologist. This report was verified electronically.
[2017-11-04 21:11] VITALS: BP 137/64; PULSE 89; RESP 22; O2SAT 94
[2017-11-04] MEDS ORDERED: LIDOCAINE HCL 1% PF 30 ML VIAL ONE (21:57)
[2017-11-04] MEDS ORDERED: CEPHALEXIN MONOHYDRATE 500 MG CAP PO ONE (22:15)
[2017-11-04] MEDS ORDERED: ACETAMINOPHEN 325 MG TAB PO ONE (22:15)
[2017-11-04] MEDS ORDERED: CEPH-460 PO (22:17)
== END 2017-11-05 00:33 | disposition home or self-care (01) ==
LOC: NEPD 18:29
DX: S62.602A Fracture of unspecified phalanx of right middle finger, initial encounter for closed fracture (principal); F03.90 Unspecified dementia, unspecified severity, without behavioral disturbance, psychotic disturbance, mood disturbance, and anxiety; I10 Essential (primary) hypertension; E11.9 Type 2 diabetes mellitus without complications; W23.0XXA Caught, crushed, jammed, or pinched between moving objects, initial encounter; Y92.009 Unspecified place in unspecified non-institutional (private) residence as the place of occurrence of the external cause; Z23 Encounter for immunization; Z88.5 Allergy status to narcotic agent
CPT/HCPCS: 12001; 73120; 90471; 90714

== ENCOUNTER 2017-12-01 21:42 | Inpatient (IN) | payer MEDICARE ==
[~2017-12-01] VITALS: Ht 162.6 cm; Wt 68.0 kg
[~2017-12-01 21:42] MED LIST changes: +CEPH-460 PO
[2017-12-01 21:56] VITALS: BP 135/60; PULSE 92; RESP 17; TEMP 99; O2SAT 96
[2017-12-01 22:37] LABS: AUTOMATED NEUTROPHIL # 11.5 TH/MM3 (1.8-7.7); BASOPHIL % 0.3 % (0.0-2.0); EOSINOPHIL # 0.2 TH/MM3 (0-0.4); EOSINOPHIL % 1.5 % (0.0-4.0); HEMATOCRIT 42.3 % (35.0-46.0); HEMOGLOBIN 14.3 GM/DL (11.6-15.3); LYMPH % 4.4 % (9.0-44.0); LYMPHOCYTE # 0.6 TH/MM3 (1.0-4.8); MEAN CELL VOLUME 88.6 FL (80.0-100.0); MEAN CORPUSCULAR HGB CONC 33.9 % (32.0-36.0); MEAN PLATELET VOLUME 8.4 FL (7.0-11.0); MONO % 6.4 % (0.0-8.0); MONOCYTE # 0.8 TH/MM3 (0-0.9); NEUT % 87.4 % (16.0-70.0); PLATELET COUNT 237 TH/MM3 (150-450); RED BLOOD COUNT 4.77 MIL/MM3 (4.00-5.30); WHITE BLOOD COUNT 13.1 TH/MM3 (4.0-11.0)
[2017-12-01 23:12] LABS: BICARBONATE 29.5 MEQ/L (21.0-32.0); BLOOD UREA NITROGEN 19 MG/DL (7-18); CHLORIDE 103 MEQ/L (98-107); CREATININE 0.77 MG/DL (0.50-1.00); GLOMERULAR FILTRATION RATE 75 ML/MIN (>89); GLUCOSE,RANDOM 117 MG/DL (74-106); SODIUM (NA) 140 MEQ/L (136-145); TROPONIN I LESS THAN 0.02 NG/ML (0.02-0.05)
[2017-12-02 00:17] VITALS: BP 123/81; PULSE 92; RESP 18; O2SAT 96
[2017-12-02 01:07] LABS: BACTERIA, URINE OCC /hpf; BILIRUBIN, URINE NEG (NEG); BLOOD, URINE NEG (NEG); GLUCOSE,URINE NEG (NEG); HYALINE CAST, URINE 1 /lpf (RARE); KETONE, URINE NEG (NEG); MUCUS URINE FEW /lpf (OCC); NITRITE,URINE NEG (NEG); PH, URINE 5.5 (5.0-8.5); SQUAMOUS EPITHELIAL CELL URINE 7 /hpf (0-5); URINE COLOR YELLOW (YELLW/STRAW); URINE LEUKOCYTE ESTERASE NEG (NEG)
--- NOTE | 2017-12-02 01:24 | PD ---
HPI Chief Complaint: General Weakness Time Seen by Provider: 01:18 Travel History International Travel<30 days: No Contact w/Intl Traveler<30days: No Traveled to known affect area: No History of Present Illness HPI 67-year-old female patient with history of dementia and MS, presents to the ER today brought in by daughter because of general weakness and increased disorientation. Patient states she is not feeling well but is not able to give me a more specific answer. She denies any chest pains, abdominal pains, or other issues. It is unclear whether she is a reliable historian, baseline GCS is 14. Modifying Factors: None Associated Signs & Symptoms: General weakness, altered mental status Risk Factors: Dementia PFSH Past Medical History Cardiovascular Problems: Yes (HTN) Congestive Heart Failure: Yes Dementia: Yes Diabetes: Yes Patient Takes Glucophage: No (UNABLE TO OBTAIN ) Diminished Hearing: No Hypertension: Yes Neurologic: Yes Tetanus Vaccination: < 5 Years ?: Not Social History Alcohol Use: No Tobacco Use: No Substance Use: No Allergies-Medications (Allergen,Severity, Reaction): Coded Allergies: codeine (Unverified Allergy, Unknown, 12/01/17) Reported Meds & Prescriptions Reported Meds & Active Scripts Active Active Prescriptions or Reported Medications Unobtainable Review of Systems ROS Limitations: Altered Mental Status Physical Exam Narrative GENERAL: Well-developed elderly white female patient currently in mild distress. Awake, disoriented. SKIN: Focused skin assessment warm/dry. HEAD: Atraumatic. Normocephalic. EYES: Pupils equal and round. No scleral icterus. No injection or drainage. ENT: No nasal bleeding or discharge. Mucous membranes pink and moist. NECK: Trachea midline. No JVD. Supple. CARDIOVASCULAR: Regular rate and rhythm. No murmur appreciated. RESPIRATORY: No accessory muscle use. Clear to auscultation. Breath sounds equal bilaterally. GASTROINTESTINAL: Abdomen soft, non-tender, nondistended. Hepatic and splenic margins not palpable. MUSCULOSKELETAL: No obvious deformities. No clubbing. No cyanosis. No edema. NEUROLOGICAL: Awake and disoriented. No obvious cranial nerve deficits. Motor grossly within normal limits. Normal speech. PSYCHIATRIC: Appropriate mood and affect; insight and judgment poor. Data Data Last Documented VS Vital Signs Date Time Temp Pulse Resp B/P (MAP) Pulse Ox O2 Delivery O2 Flow Rate FiO2 12/02/17 00:17 92 18 123/81 (95) 96 Room Air 12/01/17 21:56 99.0 Orders Orders Electrocardiogram (12/01/17 22:07) Complete Blood Count With Diff (12/01/17 22:07) Basic Metabolic Panel (Bmp) (12/01/17 22:07) Ckmb (Isoenzyme) Profile (12/01/17 22:07) Troponin I (12/01/17 22:07) Iv Access Insert/Monitor (12/01/17 22:07) Ecg Monitoring (12/01/17 22:07) Oxygen Administration (12/01/17 22:07) Oximetry (12/01/17 22:) Urinalysis - C+S If Indicated (12/01/17 22:) CKMB (12/01/17:23) CKMB% (12/01/17:23) Ct Brain W/O Iv Contrast(Rout) (12/02/17 01:19) Admit Order (Ed Use Only) (12/02/17 02:08) Labs Laboratory Tests Test 12/01/17 22:23 12/02/17 00:55 White Blood Count 13.1 TH/MM3 Red Blood Count 4.77 MIL/MM3 Hemoglobin 14.3 GM/DL Hematocrit 42.3 % Mean Corpuscular Volume 88.6 FL Mean Corpuscular Hemoglobin 30.0 PG Mean Corpuscular Hemoglobin Concent 33.9 % Red Cell Distribution Width 14.0 % Platelet Count 237 TH/MM3 Mean Platelet Volume 8.4 FL Neutrophils (%) (Auto) 87.4 % Lymphocytes (%) (Auto) 4.4 % Monocytes (%) (Auto) 6.4 % Eosinophils (%) (Auto) 1.5 % Basophils (%) (Auto) 0.3 % Neutrophils # (Auto) 11.5 TH/MM3 Lymphocytes # (Auto) 0.6 TH/MM3 Monocytes # (Auto) 0.8 TH/MM3 Eosinophils # (Auto) 0.2 TH/MM3 Basophils # (Auto) 0.0 TH/MM3 CBC Comment DIFF FINAL Differential Comment Blood Urea Nitrogen 19 MG/DL Creatinine 0.77 MG/DL Random Glucose 117 MG/DL Calcium Level 9.0 MG/DL Sodium Level 140 MEQ/L Potassium Level 4.0 MEQ/L Chloride Level 103 MEQ/L Carbon Dioxide Level 29.5 MEQ/L Anion Gap 8 MEQ/L Estimat Glomerular Filtration Rate 75 ML/MIN Total Creatine Kinase 118 U/L Creatine Kinase MB 2.5 NG/ML Troponin I LESS THAN 0.02 NG/ML Urine Color YELLOW Urine Turbidity HAZY Urine pH 5.5 Urine Specific [place] 1.018 Urine Protein NEG mg/dL Urine Glucose (UA) NEG mg/dL Urine Ketones NEG mg/dL Urine Occult Blood NEG Urine Nitrite NEG Urine Bilirubin NEG Urine Urobilinogen LESS THAN 2.0 MG/DL Urine Leukocyte Esterase NEG Urine RBC 2 /hpf Urine WBC 3 /hpf Urine Squamous Epithelial Cells 7 /hpf Urine Bacteria OCC /hpf Urine Hyaline Casts 1 /lpf Urine Mucus FEW /lpf Microscopic Urinalysis Comment CULT NOT INDICATED MDM Medical Decision Making Medical Screen Exam Complete: Yes Emergency Medical Condition: Yes Medical Record Reviewed: Yes Interpretation(s) EKG shows sinus tachycardia rate of 100 bpm. No signs of acute ST elevations or depressions. Laboratory Tests Test 12/01/17 22:23 12/02/17 00:55 White Blood Count 13.1 TH/MM3 (4.0-11.0) Neutrophils (%) (Auto) 87.4 % (16.0-70.0) Lymphocytes (%) (Auto) 4.4 % (9.0-44.0) Neutrophils # (Auto) 11.5 TH/MM3 (1.8-7.7) Lymphocytes # (Auto) 0.6 TH/MM3 (1.0-4.8) Blood Urea Nitrogen 19 MG/DL (7-18) Random Glucose 117 MG/DL (74-106) Estimat Glomerular Filtration Rate 75 ML/MIN (>89) Troponin I LESS THAN 0.02 NG/ML Urine Turbidity HAZY (CLEAR) Urine Bacteria OCC /hpf (NONE) Urine Mucus FEW /lpf (OCC) Last [address] 12/02/17 0119 Signed Impressions: Service Date/Time: Saturday, December 02, 2017 01:31 - CONCLUSION: No acute abnormality. Nato Ward MD Differential Diagnosis Altered mental status/weakness: Metabolic issues versus dehydration versus acute intracranial processes versus CVA versus sepsis/UTI Narrative Course I do not see any significant focal neurological deficits although she is generally weak. She states she does have history of MS. She is a fairly difficult historian and appears somewhat disoriented, it is unclear of how long she has had the issue with the general weakness. Lab work did not indicate metabolic issues or dehydration. CT the brain was unremarkable for any signs of acute intracranial processes. Considering history of MS, steroid was given the ER as a precaution for possible MS exacerbation. At this point, my plan would be to admit her for further evaluation. Case is discussed with Dr. Bills for admission. Diagnosis Primary Impression: General weakness Admitting Information Admitting Physician Requests: Admit Scripts Unable to Obtain Active Prescriptions or Reported Meds Salma Chicas MD Dec 02, 2017 01:24
--- NOTE | 2017-12-02 01:47 | RADRPT ---
EXAM DATE/TIME: 12/02/2017 01:31 [facility] COMPARISON: CT BRAIN W/O CONTRAST, April 24, 2017, 20:40. INDICATIONS : Altered mental status. RADIATION DOSE: 34.55 CTDIvol (mGy) MEDICAL HISTORY : Hypertension. Dementia. Diabetes mellitus type 2. SURGICAL HISTORY : None. ENCOUNTER: Initial ACUITY: 1 day PAIN SCALE: Non-responsive LOCATION: cranial TECHNIQUE: Multiple contiguous axial images were obtained of the head. Using automated exposure control and adj ustment of the mA and/or kV according to patient size, radiation dose was kept as low as reasonably a chievable to obtain optimal diagnostic quality images. DICOM format image data is available electro nically for review and comparison. FINDINGS: CEREBRUM: The ventricles are normal for age. No evidence of midline shift, mass lesion, hemorrhage or acute in farction. No extra-axial fluid collections are seen. POSTERIOR FOSSA: The cerebellum and brainstem are intact. The 4th ventricle is midline. The cerebellopontine angle i s unremarkable. EXTRACRANIAL: The visualized portion of the orbits is intact. SKULL: The calvaria is intact. No evidence of skull fracture. CONCLUSION: No acute abnormality. Nato Wrad MD on December 02, 2017 at 1:45 Board Certified Radiologist. This report was verified electronically.
[2017-12-02] MEDS ORDERED: LACTULOSE SYRUP 20 GM/30 ML CUP PO PRN (02:15)
[2017-12-02] MEDS ORDERED: methylPREDNISolone SOD SUCC 125 MG/2 ML VIAL IV PUSH ONE (02:15)
[2017-12-02] MEDS ORDERED: SENNOSIDES 8.6 MG TAB PO PRN (02:15)
[2017-12-02] MEDS ORDERED: SODIUM CHLORIDE 0.9% FLUSH 10 ML FLUSH IV FLUSH PRN (02:15)
[2017-12-02] MEDS ORDERED: ONDANSETRON HCL 4 MG/2 ML VIAL IVP PRN (02:15)
[2017-12-02] MEDS ORDERED: MAGNESIUM HYDROXIDE SUSP 30 ML CUP PO PRN (02:15)
[2017-12-02] MEDS ORDERED: BISACODYL 10 MG SUPP RECTAL PRN (02:15)
[2017-12-02] MEDS: SODIUM CHLOR 0.9% 1000 ML INJ 1,000 ML IV SCH ×2 (02:30→14:32)
--- NOTE | 2017-12-02 02:43 | RADRPT ---
EXAM DATE/TIME: 12/02/2017 02:19 [facility] COMPARISON: CHEST SINGLE AP, June 11, 2017, 13:25. INDICATIONS : Fever. Weakness. MEDICAL HISTORY : None. SURGICAL HISTORY : None. ENCOUNTER: Initial ACUITY: 1 day PAIN SCORE: Non-responsive. LOCATION: Bilateral chest FINDINGS: Trace bibasilar atelectasis/scarring. No pneumonia seen. No pleural effusion or pneumothorax. Heart size stable, within normal limits. Left chest wall cardiac loop recorder present. CONCLUSION: Minimal bibasilar atelectasis/scarring. Nato Ward MD on December 02, 2017 at 2:40 Board Certified Radiologist. This report was verified electronically.
[2017-12-02 03:38] VITALS: BP 140/61; PULSE 103; RESP 18; TEMP 100.6; O2SAT 90
--- NOTE | 2017-12-02 04:12 | HHI.HP ---
HPI Service [facility] Primary Care Physician Unknown Admission Diagnosis Altered mental status/general weakness Diagnoses: (1) Encephalopathy Diagnosis: Principal (2) General weakness Diagnosis: Principal (3) Leukocytosis Diagnosis: Principal (4) Dehydration Diagnosis: Principal Travel History International Travel<30 Days: No Contact w/Intl Traveler <30 Da: No Traveled to Known Affected Are: No History of Present Illness This is a 67-year-old female with a PMH of HTN, Dementia, DM and MS was brought to the ER by Daughter secondary to AMS and weakness. Daughter unavailable at this time. Patient unable to provide much history. Per review of records, pt called EMS for weakness x2-3 days. No reported fever, chills or fall. On arrival, BP 135/60, HR 92, O2 sat 96% on RA, Temp 99.0, Tmax 100.6. WBC 13. Chemistry unremarkable with a. GFR 75. Troponin negative. UA negative. CT Head with no acute findings. CXR with minimal bibasilar atelectasis. S/p Solu- Medrol in ER. Review of Systems Except as stated in HPI: all other systems reviewed are Neg ROS: Unable to obtain from patient secondary to AMS. Past Family Social History Past Medical History PMH: HTN, Dementia, DM and MS Past Surgical History PAST SURGICAL HISTORY: Unknown Allergies: Coded Allergies: codeine (Unverified Allergy, Unknown, 12/01/17) Family History PAST FAMILY HISTORY: Reviewed. No h/o DM or CAD Social History PAST SOCIAL HISTORY: Reportedly negative for alcohol, tobacco or drugs. Physical Exam Vital Signs Vital Signs Date Time Temp Pulse Resp B/P (MAP) Pulse Ox O2 Delivery O2 Flow Rate FiO2 12/02/17 03:38 100.6 103 18 140/61 (87) 90 12/02/17 02:51 12/02/17 00:17 92 18 123/81 (95) 96 Room Air 12/01/17 21:56 99.0 92 17 135/60 (85) 96 Physical Exam PE: GENERAL: Middle-aged female in no acute distress. Confused. HEENT: PERRLA, EOMI. No scleral icterus or conjunctival pallor. No lid lag or facial droop. CARDIOVASCULAR: Regular rate and rhythm. No obvious murmurs to auscultation. No chest tenderness to palpation. RESPIRATORY: No obvious rhonchi or wheezing. Clear to auscultation. Breath sounds equal bilaterally. GASTROINTESTINAL: Abdomen soft, non-tender, nondistended. BS normal. MUSCULOSKELETAL: Extremities without clubbing, cyanosis, or edema. No obvious deformities. NEUROLOGICAL: Awake, confused, not answering questions. No focal neurologic deficits. Moving both upper and lower extremities spontaneously. Laboratory Laboratory Tests Test 12/01/17 22:23 12/02/17 00:55 White Blood Count 13.1 Red Blood Count 4.77 Hemoglobin 14.3 Hematocrit 42.3 Mean Corpuscular Volume 88.6 Mean Corpuscular Hemoglobin 30.0 Mean Corpuscular Hemoglobin Concent 33.9 Red Cell Distribution Width 14.0 Platelet Count 237 Mean Platelet Volume 8.4 Neutrophils (%) (Auto) 87.4 Lymphocytes (%) (Auto) 4.4 Monocytes (%) (Auto) 6.4 Eosinophils (%) (Auto) 1.5 Basophils (%) (Auto) 0.3 Neutrophils # (Auto) 11.5 Lymphocytes # (Auto) 0.6 Monocytes # (Auto) 0.8 Eosinophils # (Auto) 0.2 Basophils # (Auto) 0.0 CBC Comment DIFF FINAL Differential Comment Blood Urea Nitrogen 19 Creatinine 0.77 Random Glucose 117 Calcium Level 9.0 Sodium Level 140 Potassium Level 4.0 Chloride Level 103 Carbon Dioxide Level 29.5 Anion Gap 8 Estimat Glomerular Filtration Rate 75 Total Creatine Kinase 118 Creatine Kinase MB 2.5 Troponin I LESS THAN 0.02 Urine Color YELLOW Urine Turbidity HAZY Urine pH 5.5 Urine Specific [place] 1.018 Urine Protein NEG Urine Glucose (UA) NEG Urine Ketones NEG Urine Occult Blood NEG Urine Nitrite NEG Urine Bilirubin NEG Urine Urobilinogen LESS THAN 2.0 Urine Leukocyte Esterase NEG Urine RBC 2 Urine WBC 3 Urine Squamous Epithelial Cells 7 Urine Bacteria OCC Urine Hyaline Casts 1 Urine Mucus FEW Microscopic Urinalysis Comment CULT NOT INDICATED Result Diagram: 12/01/17222212/01/172222 Caprini VTE Risk Assessment Caprini VTE Risk Assessment: No/Low Risk (score <= 1) Caprini Risk Assessment Model Point Value = 1 Point Value = 2 Point Value = 3 Point Value = 5 Age 41-60 Minor surgery BMI > 25 kg/m2 Swollen legs Varicose veins or History of unexplained or recurrent spontaneous Oral contraceptives or hormone replacement Sepsis (< 1 month) Serious lung disease, including pneumonia (< 1 month) Abnormal pulmonary function Acute myocardial infarction Congestive heart failure (< 1 month) History of inflammatory bowel disease Medical patient at bed rest Age 61-74 Arthroscopic surgery Major open surgery (> 45 min) Laparoscopic surgery (> 45 min) Malignancy Confined to bed (> 72 hours) Immobilizing plaster cast Central venous access Age >= 75 History of VTE Family history of VTE Factor V Leiden Prothrombin [id number] Lupus anticoagulant Anticardiolipin antibodies Elevated serum homocysteine Heparin-induced thrombocytopenia Other congenital or acquired thrombophilia Stroke (< 1 month) Elective arthroplasty Hip, pelvis, or leg fracture Acute spinal cord injury (< 1 month) Prophylaxis Regimen Total Risk Factor Score Risk Level Prophylaxis Regimen 0-1 Low Early ambulation 2 Moderate Order ONE of the following: *Sequential Compression Device (SCD) *Heparin 5000 units SQ BID 3-4 Higher Order ONE of the following medications: *Heparin 5000 units SQ TID *Enoxaparin/Lovenox 40 mg SQ daily (WT < 150 kg, CrCl > 30 mL/min) *Enoxaparin/Lovenox 30 mg SQ daily (WT < 150 kg, CrCl > 10-29 mL/min) *Enoxaparin/Lovenox 30 mg SQ BID (WT < 150 kg, CrCl > 30 mL/min) AND/OR *Sequential Compression Device (SCD) 5 or more Highest Order ONE of the following medications: *Heparin 5000 units SQ TID (Preferred with Epidurals) *Enoxaparin/Lovenox 40 mg SQ daily (WT < 150 kg, CrCl > 30 mL/min) *Enoxaparin/Lovenox 30 mg SQ daily (WT < 150 kg, CrCl > 10-29 mL/min) *Enoxaparin/Lovenox 30 mg SQ BID (WT < 150 kg, CrCl > 30 mL/min) AND *Sequential Compression Device (SCD) Assessment and Plan Problem List: (1) Encephalopathy ICD Code: G93.40 - Encephalopathy, unspecified (2) General weakness ICD Code: R53.1 - Weakness Status: Acute (3) Leukocytosis ICD Code: D72.829 - Elevated white blood cell count, unspecified (4) Dehydration ICD Code: E86.0 - Dehydration Assessment and Plan A/P: 1. Encephalopathy: etiology unclear, h/o Dementia, however baseline unknown. CT Head w/ no acute findings, images reviewed by me. Possibly due to infectious etiology, however so far negative. Neuro cheks. 2. Generalized Weakness: reported by Daughter, unable to assess extent of weakness as pt not cooperating w/ exam due to AMS, s/p Solu-Medrol in ER for possible MS however will hold at this time in light of possible underlying infection. PT for eval/tx. 3. Leukocytosis: WBC 13. Temp 99 on arrival, now w/ Temp 100.6. Check Blood Cultures. CXR w/ basilar atelectasis, images reviewed by me. U/a negative. Will start empiric treatment for early PNA w/ Rocephin/Zithro. Repeat labs in am, follow up cultures. 4. Dehydration: GFR 75. BUN 19. IVF for hydration, repeat labs in am. 5. DVT Prophylaxis: SCD/Teds. 6. Social work for d/c planning as needed. 7. Case discussed w/ ER physician at length, labs/records/imaging reviewed by me. Selene Li MD Dec 02, 2017 04:11
[2017-12-02] MEDS: cefTRIAXone INJ 1,000 MG in SODIUM CHLORIDE 0.9% INJ 100 ML IV SCH (05:30)
[2017-12-02] MEDS: AZITHROMYCIN INJ 500 MG in SODIUM CHLOR 0.9% 250 ML INJ 250 ML IV SCH (05:37)
[2017-12-02 08:24] VITALS: BP 124/57; PULSE 110; RESP 16; TEMP 99.3; O2SAT 91
[2017-12-02] MEDS: DOCUSATE SODIUM 50 MG/SENNA 8.6 MG TAB PO SCH ×2 (09:00→20:59)
--- NOTE | 2017-12-02 10:07 | HHI.PR ---
Subjective Remarks Follow up with AMS, weakness. The patient is seen with her daughter Katherin at bedside. The patient reports not feeling well again today. She reports she feels weak and cannot walk. She reports chills and cough productive of yellow sputum. The daughter believes her mentation has improved compared to yesterday but still not back to baseline. The daughter states this has happened previously and she was diagnosed with CHF and pneumonia. The daughter does report slightly increased edema around the patient's ankles. No reported chest pain. No other symptoms reported at this time. Objective Vitals Vital Signs Date Time Temp Pulse Resp B/P (MAP) Pulse Ox O2 Delivery O2 Flow Rate FiO2 12/02/17 08:24 99.3 110 16 124/57 (79) 91 12/02/17 03:38 100.6 103 18 140/61 (87) 90 12/02/17 02:51 12/02/17 00:17 92 18 123/81 (95) 96 Room Air 12/01/17 21:56 99.0 92 17 135/60 (85) 96 Result Diagram: 12/01/17 2223 12/01/17 2223 Imaging Last Impressions Head CT 12/02/17 0119 Signed Impressions: Service Date/Time: Saturday, December 02, 2017 01:31 - CONCLUSION: No acute abnormality. Nato Ward MD Chest X-Ray 12/02/17 0000 Signed Impressions: Service Date/Time: Saturday, December 02, 2017 02:19 - CONCLUSION: Minimal bibasilar atelectasis/scarring. Nato Ward MD Objective Remarks GENERAL: Well-developed, well-nourished female patient in [facility]. SKIN: Warm and dry. No rash. HEENT: Atraumatic. Normocephalic. Pupils equal and round. Mucous membranes pink and moist. NECK: Trachea midline. CARDIOVASCULAR: Regular rate and rhythm. No murmur appreciated. RESPIRATORY: No accessory muscle use. Clear to auscultation. Breath sounds equal bilaterally. GASTROINTESTINAL: Abdomen soft, non-tender, nondistended. Hepatic and splenic margins not palpable. MUSCULOSKELETAL: No obvious deformities. Trace bilateral lower extremity edema around the ankles. NEUROLOGICAL: Awake and alert. No obvious cranial nerve deficits. Motor grossly within normal limits. Moving all extremities spontaneously with generalized weakness. Normal speech. Medications and IVs Current Medications Medications (Trade) Dose Ordered Sig/Radha Route Start Time Stop Time Status Last Admin Sodium Chloride 1,000 ml @ 100 mls/hr Q10H IV 12/02/17 02:06 12/02/17 02:30 (NS Flush) 2 ml UNSCH PRN IV FLUSH 12/02/17 02:15 (NS Flush) 2 ml BID IV FLUSH 12/02/17 09:00 (Zofran Inj) 4 mg Q6H PRN IVP 12/02/17 02:15 (Tylenol) 650 mg Q6H PRN PO 12/02/17 02:15 (Lashell-Colace) 1 tab BID PO 12/02/17 09:00 (Milk Of Magnesia Liq) 30 ml Q12H PRN PO 12/02/17 02:15 (Senokot) 17.2 mg Q12H PRN PO 12/02/17 02:15 (Dulcolax Supp) 10 mg DAILY PRN RECTAL 12/02/17 02:15 (Lactulose Liq) 30 ml DAILY PRN PO 12/02/17 02:15 Ceftriaxone Sodium 1000 mg/ Sodium Chloride 100 ml @ 200 mls/hr Q24H IV 12/02/17 04:00 12/02/17 05:30 Azithromycin 500 mg/Sodium Chloride 250 ml @ 250 mls/hr Q24H IV 12/02/17 05:00 12/02/17 05:37 A/P Problem List: (1) Encephalopathy ICD Code: G93.40 - Encephalopathy, unspecified (2) General weakness ICD Code: R53.1 - Weakness Status: Acute (3) Leukocytosis ICD Code: D72.829 - Elevated white blood cell count, unspecified (4) Dehydration ICD Code: E86.0 - Dehydration Assessment and Plan 67-year-old female with a PMH of HTN, Dementia, DM and MS was brought to the ER by Daughter secondary to AMS and weakness. Acute Encephalopathy: etiology unclear, h/o Dementia, however worse than baseline. Suspect secondary to infection. -CT Head images reviewed, no acute findings. -Monitor Neuro checks -Continue antibiotics as below -Monitor for improvement Generalized Weakness: reported by Daughter, weakness much worse than baseline. S/p Solu-Medrol in ER for possible MS however will hold at this time in light of possible underlying infection. -Consult PT for eval/tx. -Treat infection Sepsis with URI: patient meets sepsis criteria with leukocytosis WBC 13K, Tmax 100.6, tachycardia HR 110, suspected source- upper respiratory infection. -CXR w/ basilar atelectasis, images reviewed by me. -U/a negative, however with occ bacteria, will perform mandatory urine culture -Blood Cultures collected and pending. -Continue on empiric treatment for early PNA w/ IV Rocephin/Zithro. -Monitor labs, follow up cultures. Dehydration: GFR 75. BUN 19. -Continue IVF for hydration -repeat labs in am. Dementia: patient with baseline dementia, per daughter, however with acute encephalopathy as above -continue home meds -monitor neuro checks Multiple Sclerosis: reported by patient's daughter. -does not appear to be in acute flare, weakness likely secondary to infection -continue to monitor -PT/OT consult DVT Prophylaxis: SCD/Teds. Discharge Planning Discharge pending further clinical improvement. Not yet ready for discharge. Aparna Penn PA-C Dec 02, 2017 10:07 am
[2017-12-02 12:26] VITALS: BP 131/60; PULSE 98; RESP 16; TEMP 97.8; O2SAT 91
[2017-12-02] MEDS: SODIUM CHLORIDE 0.9% FLUSH 10 ML FLUSH IV FLUSH SCH ×2 (14:32→20:58)
[2017-12-02 15:42] VITALS: BP 127/60; PULSE 89; RESP 16; TEMP 99; O2SAT 92
[2017-12-02 20:17] VITALS: BP 142/65; PULSE 58; RESP 18; TEMP 98; O2SAT 92
[2017-12-02] MEDS: HEPARIN SODIUM - SQ 10,000 UNITS/ML VIAL SQ SCH (20:59)
--- NOTE | 2017-12-03 00:02 | EKG ---
Date Performed: 12/01/2017 Time Performed: 22:35:47 PTAGE: 67 years EKG: SINUS TACHYCARDIA MARKED LEFT AXIS DEVIATION ABNORMAL ECG PREVIOUS TRACING : 06/11/2017 14.08 Compared to prior tracing, rate has increased otherwise no changes DOCTOR: Justino Alvarenga Interpretating Date/Time 12/03/2017 00:00:14
[2017-12-03] MEDS: cefTRIAXone INJ 1,000 MG in SODIUM CHLORIDE 0.9% INJ 100 ML IV SCH (04:02)
[2017-12-03] MEDS: AZITHROMYCIN INJ 500 MG in SODIUM CHLOR 0.9% 250 ML INJ 250 ML IV SCH (04:03)
[2017-12-03] MEDS: SODIUM CHLOR 0.9% 1000 ML INJ 1,000 ML IV SCH ×2 (04:09→23:30)
[2017-12-03 05:19] VITALS: BP 144/70; PULSE 90; RESP 18; TEMP 98.5; O2SAT 94
[2017-12-03 06:46] LABS: AUTOMATED NEUTROPHIL # 4.6 TH/MM3 (1.8-7.7); BASOPHIL % 0.2 % (0.0-2.0); EOSINOPHIL # 0.1 TH/MM3 (0-0.4); EOSINOPHIL % 1.8 % (0.0-4.0); HEMOGLOBIN 13.7 GM/DL (11.6-15.3); LYMPHOCYTE # 1.5 TH/MM3 (1.0-4.8); MEAN CELL VOLUME 89.8 FL (80.0-100.0); MEAN CORPUSCULAR HEMOGLOBIN 30.1 PG (27.0-34.0); MEAN CORPUSCULAR HGB CONC 33.5 % (32.0-36.0); MEAN PLATELET VOLUME 8.4 FL (7.0-11.0); MONO % 12.6 % (0.0-8.0); MONOCYTE # 0.9 TH/MM3 (0-0.9); NEUT % 64.4 % (16.0-70.0); PLATELET COUNT 220 TH/MM3 (150-450); RED BLOOD COUNT 4.57 MIL/MM3 (4.00-5.30); RED CELL DISTRIBUTION WIDTH 14.2 % (11.6-17.2); WHITE BLOOD COUNT 7.2 TH/MM3 (4.0-11.0)
--- NOTE | 2017-12-03 07:01 | HHI.PR ---
Subjective Remarks Follow-up encephalopathy. Patient alert and oriented states she is feeling better. Discussed with daughter states patient is almost baseline. PT recommended rehab which the daughter agrees prefers [facility]. Discussed with case management patient still under observation status to check if she meets criteria for inpatient with sepsis secondary to respiratory infection and UTI Objective Vitals Vital Signs Date Time Temp Pulse Resp B/P (MAP) Pulse Ox O2 Delivery O2 Flow Rate FiO2 12/03/17 05:19 98.5 90 18 144/70 (94) 94 12/02/17 20:17 98.0 58 18 142/65 (90) 92 12/02/17 15:42 99.0 89 16 127/60 (82) 92 12/02/17 12:26 97.8 98 16 131/60 (83) 91 12/02/17 08:24 99.3 110 16 124/57 (79) 91 Result Diagram: 12/03/17 0520 12/01/17 2223 Imaging Last Impressions Head CT 12/02/17 0119 Signed Impressions: Service Date/Time: Saturday, December 02, 2017 01:31 - CONCLUSION: No acute abnormality. Nato Ward MD Chest X-Ray 12/02/17 0000 Signed Impressions: Service Date/Time: Saturday, December 02, 2017 02:19 - CONCLUSION: Minimal bibasilar atelectasis/scarring. Nato Ward MD Objective Remarks GENERAL: Well-developed, well-nourished female patient in [facility]. SKIN: Warm and dry. No rash. CARDIOVASCULAR: Regular rate and rhythm. No murmur appreciated. RESPIRATORY: No accessory muscle use. Clear to auscultation. Breath sounds equal bilaterally. GASTROINTESTINAL: Abdomen soft, non-tender, nondistended. MUSCULOSKELETAL: No obvious deformities. Trace bilateral lower extremity edema around the ankles. NEUROLOGICAL: Awake and alert. No obvious cranial nerve deficits. Motor grossly within normal limits. Moving all extremities spontaneously with generalized weakness. Normal speech. Procedures none A/P Problem List: (1) Encephalopathy ICD Code: G93.40 - Encephalopathy, unspecified (2) General weakness ICD Code: R53.1 - Weakness Status: Acute (3) Leukocytosis ICD Code: D72.829 - Elevated white blood cell count, unspecified (4) Dehydration ICD Code: E86.0 - Dehydration Assessment and Plan 67-year-old female with a PMH of HTN, Dementia, DM and MS was brought to the ER by Daughter secondary to AMS and weakness. Acute Encephalopathy: etiology unclear, h/o Dementia, however worse than baseline. Suspect secondary to infection. Improving -CT Head images reviewed, no acute findings. -Monitor Neuro checks -Continue antibiotics as below -Monitor for improvement Generalized Weakness: reported by Daughter, weakness much worse than baseline. S/p Solu-Medrol in ER for possible MS however will hold at this time in light of possible underlying infection. -Consult PT recommending rehab -Treat infection Sepsis with URI: patient meets sepsis criteria with leukocytosis WBC 13K, Tmax 100.6, tachycardia HR 110, suspected source- upper respiratory infection. Urine culture with gram-negative phill -CXR w/ basilar atelectasis, images reviewed by me. Consider repeating chest x-ray -Blood Cultures collected and pending negative today. -Continue on empiric treatment for early PNA in UTI w/ IV Rocephin/Zithro. -Monitor labs, follow up cultures. Improved leukocytosis Dehydration: GFR 75. BUN 19. -Continue IVF for hydration Dementia: patient with baseline dementia, per daughter, however with acute encephalopathy as above -continue home meds -monitor neuro checks Multiple Sclerosis: reported by patient's daughter. -does not appear to be in acute flare, weakness likely secondary to infection -continue to monitor -PT/OT consult DVT Prophylaxis: SCD/Teds. Subcu heparin Discharge Planning Rehab versus home health care pending follow-up PT evaluation Pierce Parra MD Dec 03, 2017 07:00
[2017-12-03 07:05] LABS: AST (GOT) 34 U/L (15-37); BLOOD UREA NITROGEN 22 MG/DL (7-18); CALCIUM 8.8 MG/DL (8.5-10.1); CHLORIDE 110 MEQ/L (98-107); GLOMERULAR FILTRATION RATE 72 ML/MIN (>89); GLUCOSE,RANDOM 90 MG/DL (74-106); SODIUM (NA) 145 MEQ/L (136-145)
[2017-12-03 07:06] LABS: ALT (GPT) 44 U/L (10-53)
[2017-12-03 07:08] LABS: ALKALINE PHOSPHATASE 107 U/L (45-117); TOTAL BILIRUBIN ADULT 0.2 MG/DL (0.2-1.0); TOTAL PROTEIN 6.7 GM/DL (6.4-8.2)
[2017-12-03] MEDS: SODIUM CHLORIDE 0.9% FLUSH 10 ML FLUSH IV FLUSH SCH ×2 (08:37→23:30)
[2017-12-03] MEDS: HEPARIN SODIUM - SQ 10,000 UNITS/ML VIAL SQ SCH ×2 (08:38→23:36)
[2017-12-03] MEDS: DOCUSATE SODIUM 50 MG/SENNA 8.6 MG TAB PO SCH ×2 (08:38→23:35)
[2017-12-03 11:58] VITALS: BP 128/60; PULSE 88; RESP 20; TEMP 98.2; O2SAT 98
[2017-12-03 16:33] VITALS: BP 130/62; PULSE 70; RESP 20; TEMP 98.2; O2SAT 97
[2017-12-03 19:50] VITALS: BP 145/66; PULSE 82; RESP 18; TEMP 98.9; O2SAT 95
[2017-12-04 00:02] VITALS: BP 145/67; PULSE 75; RESP 18; TEMP 98.8; O2SAT 94
[2017-12-04 03:13] VITALS: BP 158/69; PULSE 94; RESP 18; TEMP 98.8; O2SAT 95
[2017-12-04] MEDS: cefTRIAXone INJ 1,000 MG in SODIUM CHLORIDE 0.9% INJ 100 ML IV SCH (04:05)
[2017-12-04] MEDS: AZITHROMYCIN INJ 500 MG in SODIUM CHLOR 0.9% 250 ML INJ 250 ML IV SCH (05:06)
[2017-12-04 08:39] VITALS: BP 169/79; PULSE 85; RESP 16; TEMP 98; O2SAT 95
[2017-12-04] MEDS: DOCUSATE SODIUM 50 MG/SENNA 8.6 MG TAB PO SCH ×2 (08:49→22:14)
[2017-12-04] MEDS: SODIUM CHLORIDE 0.9% FLUSH 10 ML FLUSH IV FLUSH SCH ×2 (08:49→21:00)
[2017-12-04] MEDS: HEPARIN SODIUM - SQ 10,000 UNITS/ML VIAL SQ SCH ×2 (08:49→22:14)
--- NOTE | 2017-12-04 09:25 | HHI.PR ---
Subjective Remarks Still confused, patient thinks she is in [facility]. Knows she is in the hospital she knows her name and date of . No abd pain. Having diarrhea. No fever or chills. No nausea or vomiting since she is able to eat. Follows commands. Objective Vitals Vital Signs Date Time Temp Pulse Resp B/P (MAP) Pulse Ox O2 Delivery O2 Flow Rate FiO2 12/04/17 08:39 98.0 85 16 169/79 (109) 95 12/04/17 03:13 98.8 94 18 158/69 (98) 95 12/04/17 00:02 98.8 75 18 145/67 (93) 94 12/03/17 19:50 98.9 82 18 145/66 (92) 95 12/03/17 16:33 98.2 70 20 130/62 (84) 97 12/03/17 11:58 98.2 88 20 128/60 (82) 98 I/O 12/03/17 12/03/17 12/03/17 12/04/17 12/04/17 12/04/17 07:00 15:00 23:00 07:00 15:00 23:00 # Voids 2 1 1 # Bowel Movements 1 Result Diagram: 12/03/17 0520 12/03/17 0520 Imaging Last Impressions Head CT 12/02/17 0119 Signed Impressions: Service Date/Time: Saturday, December 02, 2017 01:31 - CONCLUSION: No acute abnormality. Nato Ward MD Chest X-Ray 12/02/17 0000 Signed Impressions: Service Date/Time: Saturday, December 02, 2017 02:19 - CONCLUSION: Minimal bibasilar atelectasis/scarring. Nato Ward MD Objective Remarks GENERAL: Well-developed, well-nourished female patient in [facility]. SKIN: Warm and dry. No rash. CARDIOVASCULAR: Regular rate and rhythm. No murmur appreciated. RESPIRATORY: No accessory muscle use. Clear to auscultation. Breath sounds equal bilaterally. GASTROINTESTINAL: Abdomen soft, non-tender, nondistended. MUSCULOSKELETAL: No obvious deformities. Trace bilateral lower extremity edema around the ankles. NEUROLOGICAL: Awake and alert. No obvious cranial nerve deficits. Motor grossly within normal limits. Moving all extremities spontaneously with generalized weakness. Normal speech. Procedures none A/P Problem List: (1) Encephalopathy ICD Code: G93.40 - Encephalopathy, unspecified (2) General weakness ICD Code: R53.1 - Weakness Status: Acute (3) Leukocytosis ICD Code: D72.829 - Elevated white blood cell count, unspecified (4) Dehydration ICD Code: E86.0 - Dehydration Assessment and Plan 67-year-old female with a PMH of HTN, Dementia, DM and MS was brought to the ER by Daughter secondary to AMS and weakness. Acute Encephalopathy: etiology unclear, h/o Dementia, however worse than baseline. Suspect secondary to infection. Improving CT Head images reviewed, no acute findings. Monitor Neuro checks Continue antibiotics as below Monitor for improvement Generalized Weakness: reported by Daughter, weakness much worse than baseline. S/p Solu-Medrol in ER for possible MS however will hold at this time in light of possible underlying infection. Consult PT recommending rehab Treat infection Sepsis with URI: patient meets sepsis criteria on admission with leukocytosis WBC 13K, Tmax 100.6, tachycardia HR 110, suspected source- upper respiratory infection. Urine culture with gram-negative phill CXR reviewed basilar atelectasis. Consider repeating chest x-ray Blood Cultures collected and pending negative to date. Continue on empiric treatment for early PNA in UTI w/ IV Rocephin/Zithro. Monitor labs, follow up cultures. Leukocytosis improving Dehydration: GFR 75. BUN 19. om admission Continue IVF for hydration Dementia: patient with baseline dementia, per daughter, however with acute encephalopathy as above continue home meds monitor neuro checks Multiple Sclerosis: reported by patient's daughter. does not appear to be in acute flare, weakness likely secondary to infection continue to monitor PT/OT consult DVT Prophylaxis: SCD/Teds. Subcu heparin Discharge Planning PT recommends rehab. Pending improvement possible discharge tomorrow Loida Ding MD Dec 04, 2017 09:25
[2017-12-04 11:35] VITALS: BP 138/63; PULSE 84; RESP 18; TEMP 98.1; O2SAT 93
[2017-12-04 15:26] VITALS: BP_SYST 126; BP_SYST 179; BP_DIAS 69; BP_DIAS 77; PULSE 82; RESP 18; TEMP 97.3; O2SAT 94
[2017-12-04] MEDS: SODIUM CHLOR 0.9% 1000 ML INJ 1,000 ML IV SCH (20:09)
[2017-12-04 21:21] VITALS: BP 131/78; PULSE 87; RESP 18; TEMP 98; O2SAT 97
[2017-12-05] MEDS: cefTRIAXone INJ 1,000 MG in SODIUM CHLORIDE 0.9% INJ 100 ML IV SCH (04:22)
[2017-12-05] MEDS: AZITHROMYCIN INJ 500 MG in SODIUM CHLOR 0.9% 250 ML INJ 250 ML IV SCH (04:59)
[2017-12-05 05:33] VITALS: BP 134/62; PULSE 82; RESP 18; TEMP 98; O2SAT 92
[2017-12-05 08:22] VITALS: BP 136/67; PULSE 90; RESP 16; TEMP 99.1; O2SAT 95
[2017-12-05] MEDS: HEPARIN SODIUM - SQ 10,000 UNITS/ML VIAL SQ SCH ×2 (09:46→22:12)
[2017-12-05] MEDS: DOCUSATE SODIUM 50 MG/SENNA 8.6 MG TAB PO SCH ×2 (09:46→22:12)
[2017-12-05] MEDS: SODIUM CHLORIDE 0.9% FLUSH 10 ML FLUSH IV FLUSH SCH ×2 (09:46→22:12)
[2017-12-05] MEDS ORDERED: CEFU1TAB18 PO (09:49)
--- NOTE | 2017-12-05 11:43 | HHI.DS ---
Discharge Summary Admission Date Dec 04, 2017 at 13:30 Discharge Date: Dec 05, 2017 Admitting Diagnosis Altered mental status/general weakness (1) Encephalopathy ICD Code: G93.40 - Encephalopathy, unspecified (2) General weakness ICD Code: R53.1 - Weakness Status: Acute (3) Leukocytosis ICD Code: D72.829 - Elevated white blood cell count, unspecified (4) Dehydration ICD Code: E86.0 - Dehydration Procedures none Brief History - From Admission This is a 67-year-old female with a PMH of HTN, Dementia, DM and MS was brought to the ER by Daughter secondary to AMS and weakness. Daughter unavailable at this time. Patient unable to provide much history. Per review of records, pt called EMS for weakness x2-3 days. No reported fever, chills or fall. On arrival, BP 135/60, HR 92, O2 sat 96% on RA, Temp 99.0, Tmax 100.6. WBC 13. Chemistry unremarkable with a. GFR 75. Troponin negative. UA negative. CT Head with no acute findings. CXR with minimal bibasilar atelectasis. S/p Solu- Medrol in ER. CBC/BMP: 12/03/17 0520 12/03/17 0520 Significant Findings Laboratory Tests Test 12/03/17 05:20 Monocytes (%) (Auto) 12.6 % (0.0-8.0) Blood Urea Nitrogen 22 MG/DL (7-18) Albumin 3.0 GM/DL (3.4-5.0) Chloride Level 110 MEQ/L (98-107) Estimat Glomerular Filtration Rate 72 ML/MIN (>89) Imaging Last Impressions Head CT 12/02/17 0119 Signed Impressions: Service Date/Time: Saturday, December 02, 2017 01:31 - CONCLUSION: No acute abnormality. Nato Ward MD Chest X-Ray 12/02/17 0000 Signed Impressions: Service Date/Time: Saturday, December 02, 2017 02:19 - CONCLUSION: Minimal bibasilar atelectasis/scarring. Nato Ward MD PE at Discharge GENERAL: Well-developed, well-nourished female patient in NAD. SKIN: Warm and dry. No rash. CARDIOVASCULAR: Regular rate and rhythm. No murmur appreciated. RESPIRATORY: No accessory muscle use. Clear to auscultation. Breath sounds equal bilaterally. GASTROINTESTINAL: Abdomen soft, non-tender, nondistended. MUSCULOSKELETAL: No obvious deformities. Trace bilateral lower extremity edema around the ankles. NEUROLOGICAL: Awake and alert. No obvious cranial nerve deficits. Motor grossly within normal limits. Moving all extremities spontaneously with generalized weakness. Normal speech. Pt update on day of discharge Was ambulating with the nurse to the bath. No fever or chills. No n/v/d/c. Denies chest pain or sob Family at bedside. Patient is back at her baseline mentation. Hospital Course 67-year-old female with a PMH of HTN, Dementia, DM and MS was brought to the ER by Daughter secondary to AMS and weakness. Acute Encephalopathy: Resolving. Patient is back at baseline mentation etiology unclear, h/o Dementia, however worse than baseline. Suspect secondary to infection. Improving CT Head images reviewed, no acute findings. Monitor Neuro checks Continue antibiotics as below Monitor for improvement Generalized Weakness: reported by Daughter, weakness much worse than baseline. S/p Solu-Medrol in ER for possible MS however will hold at this time in light of possible underlying infection. Consult PT recommending rehab Treat infection Sepsis with URI: patient meets sepsis criteria on admission with leukocytosis WBC 13K, Tmax 100.6, tachycardia HR 110, suspected source- upper respiratory infection. Urine culture with gram-negative phill CXR reviewed basilar atelectasis. Consider repeating chest x-ray Blood Cultures collected and pending negative to date. Continue on empiric treatment for early PNA in UTI w/ IV Rocephin/Zithro. Monitor labs, follow up cultures. Leukocytosis improving Dehydration: GFR 75. BUN 19. om admission Continue IVF for hydration Dementia: patient with baseline dementia, per daughter, however with acute encephalopathy as above continue home meds monitor neuro checks Multiple Sclerosis: reported by patient's daughter. does not appear to be in acute flare, weakness likely secondary to infection continue to monitor PT/OT consult DVT Prophylaxis: SCD/Teds. Subcu heparin Discharge Planning PT recommends rehab. Patient is discharged to rehab in stable condition. Mental status is back at baseline per family at bedside. Patient to follow-up with PCP and consultants as outpatient Pt Condition on Discharge: Stable Discharge Disposition: Discharge to SNF Discharge Time: > 30 minutes Discharge Instructions DIET: Follow Instructions for: Heart Healthy Diet Activities you can perform: Regular-No Restrictions Activities to Avoid: Driving Follow up Referrals: PCP Follow-up - 1 Week New Medications: Cefuroxime (Ceftin) 250 Mg Tab 250 MG PO BID for UTI for 2 Days, #4 TAB Loida Ding MD Dec 05, 2017 11:43
[2017-12-05 13:22] VITALS: BP 133/66; PULSE 85; RESP 16; TEMP 99.1; O2SAT 95
[2017-12-05 14:33] VITALS: BP 139/64; PULSE 90; RESP 18; TEMP 97.8; O2SAT 95
[2017-12-05] MEDS: SODIUM CHLOR 0.9% 1000 ML INJ 1,000 ML IV SCH (16:09)
--- NOTE | 2017-12-05 18:26 | HHI.PR ---
Subjective Remarks Was ambulating with the nurse to the bath. No fever or chills. No n/v/d/c. Denies chest pain or sob Family at bedside. Patient is back at her baseline mentation. Objective Vitals Vital Signs Date Time Temp Pulse Resp B/P (MAP) Pulse Ox O2 Delivery O2 Flow Rate FiO2 12/05/17 14:33 97.8 90 18 139/64 (89) 95 12/05/17 13:22 99.1 85 16 133/66 (88) 95 12/05/17 08:22 99.1 90 16 136/67 (90) 95 12/05/17 05:33 98.0 82 18 134/62 (86) 92 12/04/17 21:21 98.0 87 18 131/78 (95) 97 I/O 12/04/17 12/04/17 12/04/17 12/05/17 12/05/17 12/05/17 07:00 15:00 23:00 07:00 15:00 23:00 Output Total 800 ml 800 ml Balance -800 ml -800 ml Output Urine Total 800 ml 800 ml # Voids 1 3 2 12 3 # Bowel Movements 1 Result Diagram: 12/03/17 0520 12/03/17 0520 Imaging Last Impressions Head CT 12/02/17 0119 Signed Impressions: Service Date/Time: Saturday, December 02, 2017 01:31 - CONCLUSION: No acute abnormality. Nato Ward MD Chest X-Ray 12/02/17 0000 Signed Impressions: Service Date/Time: Saturday, December 02, 2017 02:19 - CONCLUSION: Minimal bibasilar atelectasis/scarring. Nato Ward MD Objective Remarks GENERAL: Well-developed, well-nourished female patient in [facility]. SKIN: Warm and dry. No rash. CARDIOVASCULAR: Regular rate and rhythm. No murmur appreciated. RESPIRATORY: No accessory muscle use. Clear to auscultation. Breath sounds equal bilaterally. GASTROINTESTINAL: Abdomen soft, non-tender, nondistended. MUSCULOSKELETAL: No obvious deformities. Trace bilateral lower extremity edema around the ankles. NEUROLOGICAL: Awake and alert. No obvious cranial nerve deficits. Motor grossly within normal limits. Moving all extremities spontaneously with generalized weakness. Normal speech. Procedures none A/P Problem List: (1) Encephalopathy ICD Code: G93.40 - Encephalopathy, unspecified (2) General weakness ICD Code: R53.1 - Weakness Status: Acute (3) Leukocytosis ICD Code: D72.829 - Elevated white blood cell count, unspecified (4) Dehydration ICD Code: E86.0 - Dehydration Assessment and Plan 67-year-old female with a PMH of HTN, Dementia, DM and MS was brought to the ER by Daughter secondary to AMS and weakness. Acute Encephalopathy: Resolving. Patient is back at baseline mentation etiology unclear, h/o Dementia, however worse than baseline. Suspect secondary to infection. Improving CT Head images reviewed, no acute findings. Monitor Neuro checks Continue antibiotics as below Monitor for improvement Generalized Weakness: reported by Daughter, weakness much worse than baseline. S/p Solu-Medrol in ER for possible MS however will hold at this time in light of possible underlying infection. Consult PT recommending rehab Treat infection Sepsis with URI: patient meets sepsis criteria on admission with leukocytosis WBC 13K, Tmax 100.6, tachycardia HR 110, suspected source- upper respiratory infection. Urine culture with gram-negative phill CXR reviewed basilar atelectasis. Consider repeating chest x-ray Blood Cultures collected and pending negative to date. Continue on empiric treatment for early PNA in UTI w/ IV Rocephin/Zithro. Monitor labs, follow up cultures. Leukocytosis improving Dehydration: GFR 75. BUN 19. om admission Continue IVF for hydration Dementia: patient with baseline dementia, per daughter, however with acute encephalopathy as above continue home meds monitor neuro checks Multiple Sclerosis: reported by patient's daughter. does not appear to be in acute flare, weakness likely secondary to infection continue to monitor PT/OT consult DVT Prophylaxis: SCD/Teds. Subcu heparin Discharge Planning PT recommends rehab. Patient is discharged to rehab in stable condition. Mental status is back at baseline per family at bedside. Patient to follow-up with PCP and consultants as outpatient Loida Dnig MD Dec 05, 2017 18:26
[2017-12-05 19:53] VITALS: BP 136/61; PULSE 89; RESP 18; TEMP 99.1; O2SAT 90
[2017-12-05 23:43] VITALS: BP 125/70; PULSE 75; RESP 18; TEMP 98; O2SAT 95
[2017-12-06 04:02] VITALS: BP 123/60; PULSE 80; RESP 18; TEMP 98.1; O2SAT 92
[2017-12-06] MEDS: cefTRIAXone INJ 1,000 MG in SODIUM CHLORIDE 0.9% INJ 100 ML IV SCH (04:10)
[2017-12-06] MEDS: AZITHROMYCIN INJ 500 MG in SODIUM CHLOR 0.9% 250 ML INJ 250 ML IV SCH (05:11)
[2017-12-06 07:36] VITALS: BP 123/60; PULSE 85; RESP 18; TEMP 97.9; O2SAT 92
--- NOTE | 2017-12-06 08:42 | HHI.PR ---
Subjective Remarks Patient in bed appears in nad. More awake and alert. Mentation close to her baseline. No n/v/d/c. No fever or chills. Objective Vitals Vital Signs Date Time Temp Pulse Resp B/P (MAP) Pulse Ox O2 Delivery O2 Flow Rate FiO2 12/06/17 07:36 97.9 85 18 123/60 (81) 92 12/06/17 04:02 98.1 80 18 123/60 (81) 92 12/05/17 23:43 98.0 75 18 125/70 (88) 95 12/05/17 19:53 99.1 89 18 136/61 (86) 90 12/05/17 14:33 97.8 90 18 139/64 (89) 95 12/05/17 13:22 99.1 85 16 133/66 (88) 95 I/O 12/05/17 12/05/17 12/05/17 12/06/17 12/06/17 12/06/17 07:00 15:00 23:00 07:00 15:00 23:00 # Voids 12 3 # Bowel Movements 1 Result Diagram: 12/03/17 0520 12/03/17 0520 Imaging Last Impressions Head CT 12/02/17 0119 Signed Impressions: Service Date/Time: Saturday, December 02, 2017 01:31 - CONCLUSION: No acute abnormality. Nato Ward MD Chest X-Ray 12/02/17 0000 Signed Impressions: Service Date/Time: Saturday, December 02, 2017 02:19 - CONCLUSION: Minimal bibasilar atelectasis/scarring. Nato Ward MD Objective Remarks GENERAL: Well-developed, well-nourished female patient in NAD. SKIN: Warm and dry. No rash. CARDIOVASCULAR: Regular rate and rhythm. No murmur appreciated. RESPIRATORY: No accessory muscle use. Clear to auscultation. Breath sounds equal bilaterally. GASTROINTESTINAL: Abdomen soft, non-tender, nondistended. MUSCULOSKELETAL: No obvious deformities. Trace bilateral lower extremity edema around the ankles. NEUROLOGICAL: Awake and alert. No obvious cranial nerve deficits. Motor grossly within normal limits. Moving all extremities spontaneously with generalized weakness. Normal speech. Procedures none A/P Problem List: (1) Encephalopathy ICD Code: G93.40 - Encephalopathy, unspecified (2) General weakness ICD Code: R53.1 - Weakness Status: Acute (3) Leukocytosis ICD Code: D72.829 - Elevated white blood cell count, unspecified (4) Dehydration ICD Code: E86.0 - Dehydration Assessment and Plan 67-year-old female with a PMH of HTN, Dementia, DM and MS was brought to the ER by Daughter secondary to AMS and weakness. Acute Encephalopathy: Resolving. Patient is back at baseline mentation etiology unclear, h/o Dementia, however worse than baseline. Suspect secondary to infection. Improving CT Head images reviewed, no acute findings. Monitor Neuro checks Continue antibiotics as below Monitor for improvement Generalized Weakness: reported by Daughter, weakness much worse than baseline. S/p Solu-Medrol in ER for possible MS however will hold at this time in light of possible underlying infection. Consult PT recommending rehab Treat infection Sepsis with URI: patient meets sepsis criteria on admission with leukocytosis WBC 13K, Tmax 100.6, tachycardia HR 110, suspected source- upper respiratory infection. Urine culture with gram-negative phill CXR reviewed basilar atelectasis. Consider repeating chest x-ray Blood Cultures collected and pending negative to date. Continue on empiric treatment for early PNA in UTI w/ IV Rocephin/Zithro. Monitor labs, follow up cultures. Leukocytosis improving Dehydration: GFR 75. BUN 19. om admission Continue IVF for hydration Dementia: patient with baseline dementia, per daughter, however with acute encephalopathy as above continue home meds monitor neuro checks Multiple Sclerosis: reported by patient's daughter. does not appear to be in acute flare, weakness likely secondary to infection continue to monitor PT/OT consult DVT Prophylaxis: SCD/Teds. Subcu heparin Discharge Planning PT recommends rehab. Patient is discharged to rehab in stable condition. Mental status is back at baseline per family at bedside. Patient to follow-up with PCP and consultants as outpatient Plan to DC to [facility] tomorrow Loida Ding MD Dec 06, 2017 08:42
[2017-12-06] MEDS: DOCUSATE SODIUM 50 MG/SENNA 8.6 MG TAB PO SCH ×2 (09:00→21:33)
[2017-12-06] MEDS: ACETAMINOPHEN 325 MG TAB PO PRN (09:34)
[2017-12-06] MEDS: SODIUM CHLORIDE 0.9% FLUSH 10 ML FLUSH IV FLUSH SCH ×2 (09:35→21:33)
[2017-12-06] MEDS: HEPARIN SODIUM - SQ 10,000 UNITS/ML VIAL SQ SCH ×2 (09:35→21:32)
[2017-12-06 12:08] VITALS: BP 120/58; PULSE 81; RESP 18; TEMP 98; O2SAT 92
[2017-12-06 16:05] VITALS: BP 140/68; PULSE 77; RESP 18; TEMP 98.5; O2SAT 93
[2017-12-06 21:24] VITALS: BP 132/61; PULSE 86; RESP 18; TEMP 98.3; O2SAT 95
[2017-12-06] MEDS: SODIUM CHLOR 0.9% 1000 ML INJ 1,000 ML IV SCH (21:39)
[2017-12-06 23:43] VITALS: BP 126/66; PULSE 69; RESP 18; TEMP 97.9; O2SAT 94
[2017-12-07] MEDS: cefTRIAXone INJ 1,000 MG in SODIUM CHLORIDE 0.9% INJ 100 ML IV SCH (04:24)
[2017-12-07 04:38] VITALS: BP 137/64; PULSE 85; RESP 18; TEMP 97.9; O2SAT 93
[2017-12-07] MEDS: AZITHROMYCIN INJ 500 MG in SODIUM CHLOR 0.9% 250 ML INJ 250 ML IV SCH (05:43)
[2017-12-07 07:23] VITALS: BP 126/58; PULSE 85; RESP 12; TEMP 98.2; O2SAT 95
[2017-12-07] MEDS ORDERED: CEFU1TAB18 PO (08:28)
[2017-12-07] MEDS: DOCUSATE SODIUM 50 MG/SENNA 8.6 MG TAB PO SCH (09:00)
[2017-12-07] MEDS: SODIUM CHLORIDE 0.9% FLUSH 10 ML FLUSH IV FLUSH SCH (09:00)
[2017-12-07] MEDS: HEPARIN SODIUM - SQ 10,000 UNITS/ML VIAL SQ SCH (09:23)
[2017-12-07] MEDS: SODIUM CHLOR 0.9% 1000 ML INJ 1,000 ML IV SCH (09:25)
[2017-12-07] MEDS: ACETAMINOPHEN 325 MG TAB PO PRN (09:27)
[2017-12-07 11:17] VITALS: BP 122/57; PULSE 84; RESP 12; TEMP 97.9; O2SAT 91
== END 2017-12-07 14:17 | DRG 871 ==
LOC: NEDAMB 21:42 → NEDA 12-02 02:10 → NEPGCP 12-02 02:46 → OBSVTOIN 12-04 13:30
PROVIDERS: ADMIT Hospitalist; ATTEND Hospitalist
DX: A41.9 Sepsis, unspecified organism (principal); G93.40 Encephalopathy, unspecified; J18.9 Pneumonia, unspecified organism; I11.0 Hypertensive heart disease with heart failure; I50.9 Heart failure, unspecified; F03.90 Unspecified dementia, unspecified severity, without behavioral disturbance, psychotic disturbance, mood disturbance, and anxiety; N39.0 Urinary tract infection, site not specified; R53.1 Weakness; G35 Multiple sclerosis; E86.0 Dehydration; J06.9 Acute upper respiratory infection, unspecified; R60.0 Localized edema; E11.9 Type 2 diabetes mellitus without complications; R19.7 Diarrhea, unspecified
CPT/HCPCS: 70450; 71045; 80048; 80053; 81001; 82550; 82552; 84484; 85025; 87040; 87077; 87086; 87186; 93005; 96361; 96365; 96366; 96368; 96372; 96375; 99285; G0378; G8987-GO; G8987-GP; G8988-GO; G8988-GP; J0456; J0696; J1644; J2930; J7030; J7050

== ENCOUNTER 2018-06-20 10:25 | Inpatient (IN) ==
--- NOTE | 2018-06-20 11:30 | ED ---
HPI General Chief complaint: Weakness Stated complaint: Weakness Time Seen by Provider: 06/20/18 11:02 Source: patient Mode of arrival: EMS Limitations: altered mental status (She has some underlying dementia) History of Present Illness Complaint: generalized weakness Onset (ago): hour(s) (Today) Duration: constant Location: generalized Migration: none Severity: mild Relieving factors: none Exacerbating factors: none Associated symptoms: dysuria and fever/chills Related Data Home Medications Medication Instructions Recorded Confirmed celecoxib 200 mg PO BID 06/20/18 06/20/18 cholecalciferol (vitamin D3) 5,000 unit PO DAILY 06/20/18 06/20/18 [Vitamin D3] donepezil 10 mg PO DAILY 06/20/18 06/20/18 furosemide 20 mg PO DAILY 06/20/18 06/20/18 meclizine 25 mg PO TID 06/20/18 06/20/18 potassium chloride 10 meq PO DAILY 06/20/18 06/20/18 Allergies Allergy/AdvReac Type Severity Reaction Status Date / Time codeine Allergy Unknown Hives Verified 06/20/18 10:29 Review of Systems ROS Unobtainable ROS Unobtainable: unobtainable due to mental status ROS: all other systems reviewed are negative [facility] Medical History Medical History Dementia (Acute) Social History Social History Substance History: No History of Abuse Second Hand Smoke Exposure: No Smoking Status: Former smoker How Often Do You Have a Drink Containing Alcohol: Never Recent Travel in [facility] within the Last 8 Weeks: No Recent Out of Country Travel within the Last 8 Weeks: No Immunization History Tetanus Immunization: Unsure Hx Influenza Vaccine This Season: Unable to Assess Exam Const General: cooperative, healthy appearing, comfortable, no acute distress and well developed Orientation: alert, awake and oriented to person [facility] Head: normal to inspection, normocephalic and atraumatic Eyes Alignment and Position: alignment normal and position abnormal Conjunctivae: conjunctivae normal Sclera: sclerae normal EOM: EOM intact bilaterally Neck Neck: normal visual inspection and full ROM Chest Chest: normal inspection of the chest Resp Effort & Inspection: normal respiratory effort and able to speak in complete sentences Auscultation: clear to auscultation bilaterally Cardio Rate: regular rate Rhythm: regular rhythm GI Inspection: normal to inspection Palpation: soft Back/Spine/Pelvis Cervical Spine: cervical ROM normal Thoracic/Lumbar Spine: thoraco-lumbar ROM normal Skin General: no rashes or lesions noted, turgor normal and dry skin Neuro General: alert, awake, moves all extremities and CN's II-XI intact bilaterally Extrem General: normal to inspection and full ROM Psych Appearance: grossly normal Mental Status: mental status grossly normal Speech and Movement: speech and movement normal Mood: congruent mood Affect: normal affect Attitude: cooperative Thought Process: normal Thought Content: normal Judgment: judgment good Course Consultations Consultation #1: Dr. Pinzon will place in OBS. Time: 15:22 Initial Documented Vital Signs Temperature 97.9 F 06/20/18 10:32 Pulse Rate 85 06/20/18 10:32 Respiratory Rate 19 06/20/18 10:32 Blood Pressure 156/74 H 06/20/18 10:32 Pulse Oximetry 95 06/20/18 10:32 Last Documented Vital Signs Temperature 97.9 F 06/20/18 10:32 Pulse Rate 85 06/20/18 10:32 Respiratory Rate 19 06/20/18 10:32 Blood Pressure 156/74 H 06/20/18 10:32 Pulse Oximetry 95 06/20/18 10:32 Medical Decision Making [facility] Narrative Medical decision making narrative: This is a patient with dementia who presents complaining with weakness associated with subjective fevers and chills as well as dysuria and frequency. Onset was reportedly today. Basic labs including CBC, CMP, troponin and UA are pending. She has an increased BUN to creatinine ratio. She was treated with a fluid bolus. Following the fluid bolus, orthostatic vital signs were obtained.. Heart rate went from 82 lying to 107 standing and she was symptomatic. She was orthostatic following the fluid bolus. Medical Screen Exam Complete: Yes Emergency Medical Condition: Yes Differential Diagnosis Differential Diagnosis: Differential diagnosis of weakness includes but is not limited to infection, CVA, electrolyte disturbance, renal failure, hypoglycemia Lab Data Lab results reviewed: Yes I reviewed the patient's lab results. Result diagrams: 06/20/18 11:20 06/20/18 11:20 Lab Results 06/20/18 06/20/18 06/20/18 Range/Units 11:20 11:20 11:25 WBC 7.0 (4.0-11.0) th/mm3 RBC 4.44 (4.00-5.30) mil/mm3 Hgb 14.2 (11.6-15.3) gm/dL Hct 40.3 (35.0-46.0) % MCV 90.8 (80.0-100.0) fL MCH 32.0 (27.0-34.0) pg MCHC 35.3 (32.0-36.0) % RDW 13.9 (11.6-17.2) % Plt Count 191 (150-450) th/mm3 MPV 9.1 (7.0-11.0) fL Neut % (Auto) 69.8 (16.0-70.0) % Lymph % (Auto) 19.5 (9.0-44.0) % [place] % (Auto) 6.4 (0.0-8.0) % Eos % (Auto) 3.9 (0.0-4.0) % Baso % (Auto) 0.4 (0.0-2.0) % Neut # (Auto) 4.9 (1.8-7.7) th/mm3 Lymph # (Auto) 1.4 (1.0-4.8) th/mm3 [place] # (Auto) 0.5 (0.0-0.9) th/mm3 Eos # (Auto) 0.3 (0.0-0.4) th/mm3 Baso # (Auto) 0.0 (0.0-0.2) th/mm3 WBC Differential . Differential Comment Auto diff final Sodium 143 (136-145) meq/L Potassium 3.9 (3.5-5.1) meq/L Chloride 104 (98-107) meq/L Carbon Dioxide 30.4 (21.0-32.0) meq/L Anion Gap 9 (5-15) meq/L BUN 32 H (7-18) mg/dL Creatinine 1.07 H (0.50-1.00) mg/dL Estimated GFR 51 L (>89) mL/min Random Glucose 92 (74-106) mg/dL Calcium 8.7 (8.5-10.1) mg/dL Total Bilirubin 0.4 (0.2-1.0) mg/dL AST 23 (15-37) U/L ALT 27 (10-53) U/L Alkaline Phosphatase 113 (45-117) U/L Troponin I Less than 0.02 L (0.02-0.05) ng/mL Total Protein 7.4 (6.4-8.2) g/dL Albumin 3.4 (3.4-5.0) g/dL Urine Color Yellow (Yellw/Straw) Urine Clarity Clear (Clear) Urine pH 5.0 (5.0-8.5) Ur Specific [place] 1.016 (1.002-1.035) Urine Protein Negative (Neg-Trace) mg/dL Urine Glucose (UA) Negative (Negative) mg/dL Urine Ketones Negative (Negative) mg/dL Urine Occult Blood Negative (Negative) Urine Nitrate Negative (Negative) Urine Bilirubin Negative (Negative) Urine Urobilinogen Less than 2 (Less than 2) mg/dL Ur Leukocyte Esterase Negative (Negative) Urine RBC Less than 1 (0-3) /hpf Urine WBC 1 (0-5) /hpf Urine Bacteria Rare H (None) /hpf Hyaline Casts 8 (0-3) /lpf Micro UA Comment Cath-culture ind Ur Microscopic Review Not Reportable Urine Culture Comments Cath-cult indicated ECG Data EKG Prior to Arrival: No Attestation: I personally reviewed and interpreted this ECG as follows: (EKG shows a sinus rhythm with a rate of 79. No STT wave changes.) Discharge Plan Discharge Disposition Patient Disposition: 30 Still Patient Discharge Details Diagnosis: Dehydration Physicians Team ED Provider: Ning Clinton Primary Care Provider: UNKNOWN, Rxs /Orders / Referrals /Forms Prescriptions: No Action celecoxib 200 mg Capsule 200 mg PO BID RF: 0 potassium chloride 10 mEq Capsule, Extended Release 10 meq PO DAILY RF: 0 donepezil 10 mg Tablet 10 mg PO DAILY RF: 0 meclizine 25 mg Tablet 25 mg PO TID RF: 0 furosemide 20 mg Tablet 20 mg PO DAILY RF: 0 cholecalciferol (vitamin D3) [Vitamin D3] 5,000 unit Tablet 5,000 unit PO DAILY RF: 0 Status ED Status: With Doctor
[2018-06-20 11:44] LABS: Bacteria,Urine Rare /hpf; Bilirubin,Urine Negative (Negative); Clarity,Urine Clear (Clear); Color,Urine Yellow (Yellw/Straw); Glucose,Urine (UA) Negative (Negative); Hyaline Casts,Urine 8 /lpf (0-3); Leukocyte Esterase,Urine Negative (Negative); Nitrite,Urine Negative (Negative); Specific Gravity,Urine 1.016 (1.002-1.035)
[2018-06-20 11:46] LABS: Baso % (Auto) 0.4 % (0.0-2.0); Eos # (Auto) 0.3 th/mm3 (0.0-0.4); Eos % (Auto) 3.9 % (0.0-4.0); Hematocrit 40.3 % (35.0-46.0); Hemoglobin 14.2 gm/dL (11.6-15.3); Lymph # (Auto) 1.4 th/mm3 (1.0-4.8); Lymph % (Auto) 19.5 % (9.0-44.0); Mean Corpuscular HGB Conc 35.3 % (32.0-36.0); Mean Corpuscular Volume 90.8 fL (80.0-100.0); Mean Platelet Volume 9.1 fL (7.0-11.0); Mono # (Auto) 0.5 th/mm3 (0.0-0.9); Mono % (Auto) 6.4 % (0.0-8.0); Neut # (Auto) 4.9 th/mm3 (1.8-7.7); Neut % (Auto) 69.8 % (16.0-70.0); Platelet Count 191 th/mm3 (150-450); Red Blood Count 4.44 mil/mm3 (4.00-5.30); Red Cell Distribution Width 13.9 % (11.6-17.2)
[2018-06-20 12:08] LABS: Alanine Aminotransferase 27 U/L (10-53); Albumin 3.4 g/dL (3.4-5.0); Anion Gap 9 meq/L (5-15); Aspartate Aminotransferase 23 U/L (15-37); Blood Urea Nitrogen 32 mg/dL (7-18); Calcium 8.7 mg/dL (8.5-10.1); Carbon Dioxide 30.4 meq/L (21.0-32.0); Chloride 104 meq/L (98-107); Glomerular Filtration Rate 51 mL/min (>89); Glucose,Random 92 mg/dL (74-106); Potassium 3.9 meq/L (3.5-5.1); Sodium 143 meq/L (136-145)
[2018-06-20 12:12] LABS: Alkaline Phosphatase 113 U/L (45-117); Total Protein 7.4 g/dL (6.4-8.2)
[2018-06-20] MEDS ORDERED: Sod Chloride 0.9% Inj 1,000 ML IV.SIG SCH ×2 (12:30→15:30)
[2018-06-20] MEDS ORDERED: Acetaminophen 325 MG Tablet PO PRN (15:46)
[2018-06-20] MEDS ORDERED: Bisacodyl 10 MG Supp RECTAL PRN (15:46)
--- NOTE | 2018-06-20 16:39 | P.HPIM ---
History of Present Illness Service: [facility] Primary Care Physician: UNKNOWN Chief Complaint: weakness History of Present Illness: This is a 67 y/o CF with PMHx of OA, Dementia, and LE edema admitted for weakness due to decrease PO intake x3 days, daughter at bedside states that mother has Dementia. Daughter states that mother use to be more active and receive HH with PT however now that she does not receive this she does not like to leave the house and is not active despite having a walker with wheels at home. Patient denies fever, chills, N/V/D, CP, and SOB. Denies hx of CAD, IN, CHF, HTN and DM. No other concerns. - Diagnosis (1) Dementia (2) Osteoarthritis (3) Weakness (4) Dehydration PMFSH - History History Provided By: Patient - Medical / Surgical Hx Neg / Unobtainable Surgical History: Unable to Obtain - Medical History Medical History: Medical History (Last Reviewed 06/20/18 @ 16:29 by Elizabeth Pinzon MD) Dementia - Family History Family History: Family History (Last Updated 06/20/18 @ 16:32 by Elizabeth Pinzon MD) Other Family history normal - Tobacco History Second Hand Smoke Exposure: No Tobacco Use In Past 30 Days: No Smoking Status: Former smoker - Alcohol History How Often Do You Have a Drink Containing Alcohol: Never - Substance Use History Substance History: No History of Abuse - Travel History Recent Travel in the [place] Within the Last 8 Weeks: No Recent Travel Out of the Country Within the Last 8 Weeks: No - Immunization History Tetanus Immunization: Unsure Hx Influenza Vaccine This Season: Unable to Assess Medications and Allergies Active Medications: Active Medications Acetaminophen (Tylenol) 650 mg PO Q4H PRN PRN Reason: Temp > 100.4 Al Hydroxide/Mg Hydroxide (Milk Of Meaghan Liq) 30 ml PO Q12H PRN PRN Reason: Mild Constipation Bisacodyl (Dulcolax Supp) 10 mg RECTAL DAILY PRN PRN Reason: SEVERE CONSITIPATION Heparin Sodium (Porcine) (Heparin Inj) 5,000 units SQ Q12H DAVIAN Sodium Chloride (Ns Inj) 1,000 mls @ 0 mls/hr IV.SIG BOLUS DAVIAN Last Admin: 06/20/18 15:44 Dose: 999 mls/hr Sodium Chloride (Ns Inj) 1,000 mls @ 100 mls/hr IV.CONT .Q10H DAVIAN Lactulose (Lactulose Liq) 30 ml PO DAILY PRN PRN Reason: SEVERE CONSITIPATION Ondansetron HCl (Zofran Inj) 4 mg IV.PUSH Q6H PRN PRN Reason: NAUSEA OR VOMITING Senna/Docusate Sodium (Lashell-Colace) 1 tab PO BID DAVIAN Sennosides (Senokot) 17.2 mg PO Q12H PRN PRN Reason: Moderate Constipation Sodium Chloride (Ns Flush) 2 ml IV.FLUSH PRN PRN PRN Reason: FLUSH AFTER USING IV ACCESS Allergies Allergy/AdvReac Type Severity Reaction Status Date / Time codeine Allergy Unknown Hives Verified 06/20/18 10:29 Home Medications Medication Instructions Recorded Confirmed Type celecoxib 200 mg PO BID 06/20/18 06/20/18 History cholecalciferol (vitamin D3) 5,000 unit PO DAILY 06/20/18 06/20/18 History [Vitamin D3] donepezil 10 mg PO DAILY 06/20/18 06/20/18 History furosemide 20 mg PO DAILY 06/20/18 06/20/18 History meclizine 25 mg PO TID 06/20/18 06/20/18 History potassium chloride 10 meq PO DAILY 06/20/18 06/20/18 History Exam Vital signs: Vital Signs 06/20/18 10:32 06/20/18 15:39 Temperature 97.9 F Pulse Rate 85 87 Respiratory Rate 19 17 Blood Pressure 156/74 H 129/59 L Pulse Oximetry 95 98 Intake & Output 06/19/18 06/20/18 06/20/18 18:59 06:59 18:59 Intake Total 1000 / 1000 Balance 1000 / 1000 Weight 72.575 kg Intake: IV 1000 / 1000 NS Inj 1,000 ML @ Wide Open IV. 1000 / 1000 SIG BOLUS DAVIAN Rx#:[id number] Narrative: GENERAL: well nourished female, in NAD, lying comfortably in bed SKIN: Warm and dry. HEAD: Normocephalic. EYES: No scleral icterus. No injection or drainage. NECK: Supple, trachea midline. No JVD or lymphadenopathy. CARDIOVASCULAR: Regular rate and rhythm without murmurs, gallops, or rubs. RESPIRATORY: Breath sounds equal bilaterally. No accessory muscle use. GASTROINTESTINAL: Abdomen soft, non-tender, nondistended. MUSCULOSKELETAL: No cyanosis, or edema. BACK: Nontender without obvious deformity. No CVA tenderness. NEURO: AAOx2, pleasant, sensation intact to light touch, strength 4/5 x4 Results - Labs CBC & Chem 7: 06/20/18 11:20 06/20/18 11:20 Labs: Short CBC 06/20/18 Range/Units 11:20 WBC 7.0 (4.0-11.0) th/mm3 Hgb 14.2 (11.6-15.3) gm/dL Hct 40.3 (35.0-46.0) % Plt Count 191 (150-450) th/mm3 BMP 06/20/18 11:20 Sodium 143 Potassium 3.9 Chloride 104 Carbon Dioxide 30.4 BUN 32 H Creatinine 1.07 H Calcium 8.7 Cardiac Enzymes 06/20/18 Range/Units 11:20 Troponin I Less than 0.02 L (0.02-0.05) ng/mL Liver Function 06/20/18 Range/Units 11:20 Total Bilirubin 0.4 (0.2-1.0) mg/dL AST 23 (15-37) U/L ALT 27 (10-53) U/L Alkaline Phosphatase 113 (45-117) U/L Albumin 3.4 (3.4-5.0) g/dL Urine 06/20/18 Range/Units 11:25 Urine Color Yellow (Yellw/Straw) Urine Clarity Clear (Clear) Urine pH 5.0 (5.0-8.5) Ur Specific [place] 1.016 (1.002-1.035) Urine Protein Negative (Neg-Trace) mg/dL Urine Glucose (UA) Negative (Negative) mg/dL Caprini VTE Risk Assessment Caprini VTE Risk Assessment: No/Low Risk (score <= 1) Caprini Risk Assessment Model: Point Value = 1 Point Value = 2 Point Value = 3 Point Value = 5 Age 41-60 Minor surgery BMI > 25 kg/m2 Swollen legs Varicose veins or History of unexplained or recurrent spontaneous Oral contraceptives or hormone replacement Sepsis (< 1 month) Serious lung disease, including pneumonia (< 1 month) Abnormal pulmonary function Acute myocardial infarction Congestive heart failure (< 1 month) History of inflammatory bowel disease Medical patient at bed rest Age 61-74 Arthroscopic surgery Major open surgery (> 45 min) Laparoscopic surgery (> 45 min) Malignancy Confined to bed (> 72 hours) Immobilizing plaster cast Central venous access Age >= 75 History of VTE Family history of VTE Factor V Leiden Prothrombin [id number] Lupus anticoagulant Anticardiolipin antibodies Elevated serum homocysteine Heparin-induced thrombocytopenia Other congenital or acquired thrombophilia Stroke (< 1 month) Elective arthroplasty Hip, pelvis, or leg fracture Acute spinal cord injury (< 1 month) Prophylaxis Regimen: Total Risk Factor Score Risk Level Prophylaxis Regimen 0-1 Low Early ambulation 2 Moderate Order ONE of the following: *Sequential Compression Device (SCD) *Heparin 5000 units SQ BID 3-4 Higher Order ONE of the following medications: *Heparin 5000 units SQ TID *Enoxaparin/Lovenox 40 mg SQ daily (WT < 150 kg, CrCl > 30 mL/min) *Enoxaparin/Lovenox 30 mg SQ daily (WT < 150 kg, CrCl > 10-29 mL/min) *Enoxaparin/Lovenox 30 mg SQ BID (WT < 150 kg, CrCl > 30 mL/min) AND/OR *Sequential Compression Device (SCD) 5 or more Highest Order ONE of the following medications: *Heparin 5000 units SQ TID (Preferred with Epidurals) *Enoxaparin/Lovenox 40 mg SQ daily (WT < 150 kg, CrCl > 30 mL/min) *Enoxaparin/Lovenox 30 mg SQ daily (WT < 150 kg, CrCl > 10-29 mL/min) *Enoxaparin/Lovenox 30 mg SQ BID (WT < 150 kg, CrCl > 30 mL/min) AND *Sequential Compression Device (SCD) Assessment and Plan - Assessment (1) Dementia Code(s): F03.90 - Unspecified dementia without behavioral disturbance Status: Acute (2) Osteoarthritis Code(s): M19.90 - Unspecified osteoarthritis, unspecified site Status: Acute (3) Weakness Code(s): R53.1 - Weakness Status: Acute (4) Dehydration Code(s): E86.0 - Dehydration Status: Acute - Plan This is a 67 y/o CF with PMHx of OA, Dementia, and LE edema admitted for weakness due to decrease PO intake x3 days,found to be in [place] with physical deconditioning admitted for IP mgmt, HD#1 1. [place] Creatinine 1.07, BUN 32 (baseline creatinine 0.80 on 11/2017) IVF (Echo in 2017 with ef 60-65%) F/U labs in AM Holding home Celcoxib and Lasix/K F/U Urine Cx to R/O infection (neg UA) 2. Dehydration: see above, encourage increase PO intake/hydration 3. Weakness: due to above, PT/OT with HH on D/C 4. Osteoarthritis: APAP PRN, holding Celecoxib due to [place] 5. Dementia: cont. home Donepezil 6. DVT PPX: Heparin 7. Dispo: F/U AM BMP and PT/OT reccs Code Status: full Discussed Condition With: patient and daughter
--- NOTE | 2018-06-20 20:30 | ECG ---
Date Performed: 06/20/2018 Time Performed: 11:14:27 PTAGE: 67 years EKG: Sinus rhythm POSSIBLE RIGHT VENTRICULAR CONDUCTION DELAY BORDERLINE ECG PREVIOUS TRACING : 12/01/2017 22.35 Since the previous tracing, no significant change noted DOCTOR: Andrade Pugh Interpretating Date/Time 06/20/2018 20:29:25
[2018-06-20] MEDS: Senna/Docusate Sodium 8.6/50 MG Tablet PO SCH (20:41)
[2018-06-20] MEDS: Sod Chloride 0.9% Inj 1,000 ML IV.CONT SCH (23:31)
[2018-06-21] MEDS: Heparin - SQ 10,000 UNITS/ML Vial SQ SCH ×3 (04:45→15:45)
[2018-06-21] MEDS: Sod Chloride 0.9% Inj 1,000 ML IV.CONT SCH ×3 (05:09→20:35)
[2018-06-21 07:02] LABS: Baso % (Auto) 0.4 % (0.0-2.0); Eos # (Auto) 0.3 th/mm3 (0.0-0.4); Eos % (Auto) 4.4 % (0.0-4.0); Hematocrit 38.5 % (35.0-46.0); Hemoglobin 12.9 gm/dL (11.6-15.3); Lymph # (Auto) 0.8 th/mm3 (1.0-4.8); Lymph % (Auto) 12.2 % (9.0-44.0); Mean Corpuscular HGB Conc 33.4 % (32.0-36.0); Mean Corpuscular Hemoglobin 30.8 pg (27.0-34.0); Mean Corpuscular Volume 92.2 fL (80.0-100.0); Mean Platelet Volume 9.2 fL (7.0-11.0); Mono # (Auto) 0.5 th/mm3 (0.0-0.9); Mono % (Auto) 8.2 % (0.0-8.0); Neut # (Auto) 4.8 th/mm3 (1.8-7.7); Neut % (Auto) 74.8 % (16.0-70.0); Platelet Count 178 th/mm3 (150-450); Red Blood Count 4.18 mil/mm3 (4.00-5.30); White Blood Count 6.4 th/mm3 (4.0-11.0)
[2018-06-21 07:49] LABS: Alanine Aminotransferase 22 U/L (10-53); Alkaline Phosphatase 97 U/L (45-117); Anion Gap 7 meq/L (5-15); Aspartate Aminotransferase 19 U/L (15-37); Blood Urea Nitrogen 19 mg/dL (7-18); Calcium 8.2 mg/dL (8.5-10.1); Carbon Dioxide 26.8 meq/L (21.0-32.0); Chloride 110 meq/L (98-107); Glomerular Filtration Rate 72 mL/min (>89); Glucose,Random 107 mg/dL (74-106); Potassium 3.5 meq/L (3.5-5.1); Sodium 144 meq/L (136-145); Total Protein 6.4 g/dL (6.4-8.2)
[2018-06-21] MEDS: Senna/Docusate Sodium 8.6/50 MG Tablet PO SCH ×2 (09:05→20:35)
[2018-06-21 09:08] VITALS: RESP 17
--- NOTE | 2018-06-21 12:24 | P.DS ---
Date of admission: 06/20/18 19:05 Primary care physician: UNKNOWN Brief History from admission: This is a 67 y/o CF with PMHx of OA, Dementia, and LE edema admitted for weakness due to decrease PO intake x3 days, daughter at bedside states that mother has Dementia. Daughter states that mother use to be more active and receive HH with PT however now that she does not receive this she does not like to leave the house and is not active despite having a walker with wheels at home. Patient denies fever, chills, N/V/D, CP, and SOB. Denies hx of CAD, GA, CHF, HTN and DM. No other concerns. DS: Diagnosis - Discharge Diagnosis (1) Dehydration Status: Acute (2) Dementia Status: Acute (3) Osteoarthritis Status: Acute (4) Weakness Status: Acute (5) Diarrhea Status: Acute DS: Summary Hospital Course: This is a 67 y/o CF with PMHx of OA, Dementia, and LE edema admitted for weakness due to decrease PO intake x3 days, found to be in [place] with physical deconditioning admitted for IP mgmt LALO Creatinine 1.07, BUN 32 (baseline creatinine 0.80 on 11/2017) IVF (Echo in 2017 with ef 60-65%) F/U labs in AM Holding home Celcoxib and Lasix/K F/U Urine Cx to R/O infection (neg UA) Kidney function is back at baseline. Diarrhea: start lactinex and imodium . Resolved Dehydration: see above, encourage increase PO intake/hydration Weakness: due to above, PT/OT with HH on D/C Osteoarthritis: APAP PRN, holding Celecoxib due to [place] Dementia: cont. home Donepezil DVT PPX: Heparin Dispo: F/U AM BMP and PT/OT reccs Code Status: full Discussed Condition With: patient and daughter/family at bedside Diarrhea resolved. DC home in stable condition to follow up as OP with PCP and consultants. - Time Spent with Patient Total time spent providing and/or coordinating discharge services: Greater than 30 minutes Exam Vital signs: Vital Signs 06/20/18 15:39 06/20/18 16:00 06/20/18 20:00 Temperature 98.0 F 97.9 F Pulse Rate 87 78 78 Respiratory Rate 17 17 16 Blood Pressure 129/59 L 156/69 H 141/66 H Pulse Oximetry 98 97 95 06/21/18 00:00 06/21/18 08:00 Temperature 97.8 F 97.7 F Pulse Rate 82 95 H Respiratory Rate 16 17 Blood Pressure 123/64 125/66 Pulse Oximetry 93 L 93 L Intake & Output 06/20/18 06/21/18 06/21/18 18:59 06:59 18:59 Intake Total 2720 / 2720 1000 / 1000 Output Total 1000 / 1000 Balance 2720 / 2720 -1000 / -1000 1000 / 1000 Weight 72.575 kg 71.6 kg Intake: IV 1999 1000 / 1000 NS Inj 1,000 ML @ 100 mls/hr IV 1000 / 1000 .CONT .Q10H DAVIAN Rx#:[id number] NS Inj 1,000 ML @ Wide Open IV. 1999 SIG BOLUS DAVIAN Rx#:[id number] Oral 720 / 720 Output: Urine 1000 / 1000 Other: # Voids 4 Date of Last Bowel Movement 06/21/18 # Bowel Movements 2 1 Narrative: GENERAL: Pleasant well nourished female, in NAD. CARDIOVASCULAR: Regular rate and rhythm without murmurs, gallops, or rubs. RESPIRATORY: Breath sounds equal bilaterally. No accessory muscle use. GASTROINTESTINAL: Abdomen soft, non-tender, nondistended. MUSCULOSKELETAL: No cyanosis, or edema. BACK: Nontender without obvious deformity. No CVA tenderness. NEURO: AAOx2, strength 4/5 x4. Ambulated with a walker with help. Results Procedures completed during hospitalization: no procedures Labs on day of discharge: Labs from last 24 hours 06/21/18 06/21/18 05:17 05:17 WBC 6.4 RBC 4.18 Hgb 12.9 Hct 38.5 MCV 92.2 MCH 30.8 MCHC 33.4 RDW 14.0 Plt Count 178 MPV 9.2 Neut % (Auto) 74.8 H Lymph % (Auto) 12.2 [place] % (Auto) 8.2 H Eos % (Auto) 4.4 H Baso % (Auto) 0.4 Neut # (Auto) 4.8 Lymph # (Auto) 0.8 L [place] # (Auto) 0.5 Eos # (Auto) 0.3 Baso # (Auto) 0.0 WBC Differential . Differential Comment Auto diff final Sodium 144 Potassium 3.5 Chloride 110 H Carbon Dioxide 26.8 Anion Gap 7 BUN 19 H Creatinine 0.80 Estimated GFR 72 L Random Glucose 107 H Calcium 8.2 L Total Bilirubin 0.5 AST 19 ALT 22 Alkaline Phosphatase 97 Total Protein 6.4 D Albumin 3.0 L Preliminary micro results at discharge 06/20/18 11:25 Urine Culture - Preliminary Catheterized Urine No growth in 24 hours Discharge Plan - Discharge Disposition Patient Disposition: W/Home Health Service - Discharge Condition Condition: Stable - Discharge Order Discharge Orders: Discharge Order (Routine); Ordered 06/22/18 Ordered By: Loida Ding - Discharge Details Anticipated Discharge Date: 06/21/18 - Physicians Team Primary Care Provider: UNKNOWN, Attending Provider: Loida Ding Other Providers: Nurse [place],Agency
[2018-06-21] MEDS ORDERED: Loperamide 2 MG Capsule PO PRN (13:40)
--- NOTE | 2018-06-21 13:40 | P.PN ---
Subjective Interval history: Kidney function is back to normal, she is able to eat however still with diarrhea overnight and feels weak. She doesn;t feel comfortable to go home. Jak enause but not vomiting able to keep down food. No fever or chills No abd cramps. Physical Exam Vital signs: Vital Signs 06/20/18 15:39 06/20/18 16:00 06/20/18 20:00 Temperature 98.0 F 97.9 F Pulse Rate 87 78 78 Respiratory Rate 17 17 16 Blood Pressure 129/59 L 156/69 H 141/66 H Pulse Oximetry 98 97 95 06/21/18 00:00 06/21/18 08:00 06/21/18 12:00 Temperature 97.8 F 97.7 F 97.9 F Pulse Rate 82 95 H 90 Respiratory Rate 16 17 17 Blood Pressure 123/64 125/66 162/77 H Pulse Oximetry 93 L 93 L 93 L Intake & Output 06/20/18 06/21/18 06/21/18 18:59 06:59 18:59 Intake Total 2720 / 2720 1000 / 1000 Output Total 1000 / 1000 Balance 2720 / 2720 -1000 / -1000 1000 / 1000 Weight 72.575 kg 71.6 kg Intake: IV 1999 1000 / 1000 NS Inj 1,000 ML @ 100 mls/hr IV 1000 / 1000 .CONT .Q10H DAVIAN Rx#:[id number] NS Inj 1,000 ML @ Wide Open IV. 1999 / 1999 SIG BOLUS DAVIAN Rx#:[id number] Oral 720 / 720 Output: Urine 1000 / 1000 Other: # Voids 4 Date of Last Bowel Movement 06/21/18 # Bowel Movements 2 1 Narrative: GENERAL: Pleasant well nourished female, in NAD. CARDIOVASCULAR: Regular rate and rhythm without murmurs, gallops, or rubs. RESPIRATORY: Breath sounds equal bilaterally. No accessory muscle use. GASTROINTESTINAL: Abdomen soft, non-tender, nondistended. MUSCULOSKELETAL: No cyanosis, or edema. BACK: Nontender without obvious deformity. No CVA tenderness. NEURO: AAOx2, strength 4/5 x4. Ambulated with a walker with help. Results - Labs CBC & Chem 7: 06/21/18 05:17 06/21/18 05:17 Laboratory Results - last 24 hr 06/21/18 06/21/18 05:17 05:17 WBC 6.4 RBC 4.18 Hgb 12.9 Hct 38.5 MCV 92.2 MCH 30.8 MCHC 33.4 RDW 14.0 Plt Count 178 MPV 9.2 Neut % (Auto) 74.8 H Lymph % (Auto) 12.2 [place] % (Auto) 8.2 H Eos % (Auto) 4.4 H Baso % (Auto) 0.4 Neut # (Auto) 4.8 Lymph # (Auto) 0.8 L [place] # (Auto) 0.5 Eos # (Auto) 0.3 Baso # (Auto) 0.0 WBC Differential . Differential Comment Auto diff final Sodium 144 Potassium 3.5 Chloride 110 H Carbon Dioxide 26.8 Anion Gap 7 BUN 19 H Creatinine 0.80 Estimated GFR 72 L Random Glucose 107 H Calcium 8.2 L Total Bilirubin 0.5 AST 19 ALT 22 Alkaline Phosphatase 97 Total Protein 6.4 D Albumin 3.0 L Microbiology 06/20/18 11:25 Catheterized Urine Urine Culture - Preliminary No growth in 24 hours Assessment and Plan - Assessment (1) Dementia Code(s): F03.90 - Unspecified dementia without behavioral disturbance Status: Acute (2) Osteoarthritis Code(s): M19.90 - Unspecified osteoarthritis, unspecified site Status: Acute (3) Weakness Code(s): R53.1 - Weakness Status: Acute (4) Dehydration Code(s): E86.0 - Dehydration Status: Acute - Plan This is a 67 y/o CF with PMHx of OA, Dementia, and LE edema admitted for weakness due to decrease PO intake x3 days, found to be in [place] with physical deconditioning admitted for IP mgmt LALO Creatinine 1.07, BUN 32 (baseline creatinine 0.80 on 11/2017) IVF (Echo in 2017 with ef 60-65%) F/U labs in AM Holding home Celcoxib and Lasix/K F/U Urine Cx to R/O infection (neg UA) Diarrhea: start lactinex and imodium Dehydration: see above, encourage increase PO intake/hydration Weakness: due to above, PT/OT with HH on D/C Osteoarthritis: APAP PRN, holding Celecoxib due to [place] Dementia: cont. home Donepezil DVT PPX: Heparin Dispo: F/U AM BMP and PT/OT reccs Code Status: full Discussed Condition With: patient and daughter/family at bedside Poss DC 1-2 days if continue to improved, able to eat and if diarrhea resolving
[2018-06-21] MEDS ORDERED: Lactobacillus Acidophilus/L. Spores Tablet PO ONE (14:00)
[2018-06-21] MEDS: Lactobacillus Acidophilus/L. Spores Tablet PO SCH (17:03)
[2018-06-22] MEDS: Sod Chloride 0.9% Inj 1,000 ML IV.CONT SCH ×3 (01:13→08:36)
[2018-06-22 05:12] LABS: Baso % (Auto) 0.5 % (0.0-2.0); Eos # (Auto) 0.4 th/mm3 (0.0-0.4); Eos % (Auto) 5.6 % (0.0-4.0); Hematocrit 39.2 % (35.0-46.0); Lymph # (Auto) 1.6 th/mm3 (1.0-4.8); Lymph % (Auto) 24.8 % (9.0-44.0); Mean Corpuscular HGB Conc 33.2 % (32.0-36.0); Mean Corpuscular Hemoglobin 30.7 pg (27.0-34.0); Mean Corpuscular Volume 92.3 fL (80.0-100.0); Mean Platelet Volume 8.4 fL (7.0-11.0); Mono # (Auto) 0.5 th/mm3 (0.0-0.9); Mono % (Auto) 8.5 % (0.0-8.0); Neut # (Auto) 3.9 th/mm3 (1.8-7.7); Neut % (Auto) 60.6 % (16.0-70.0); Platelet Count 181 th/mm3 (150-450); Red Blood Count 4.25 mil/mm3 (4.00-5.30); White Blood Count 6.4 th/mm3 (4.0-11.0)
[2018-06-22] MEDS: Heparin - SQ 10,000 UNITS/ML Vial SQ SCH (05:32)
[2018-06-22 05:36] LABS: Calcium 8.1 mg/dL (8.5-10.1); Carbon Dioxide 25.6 meq/L (21.0-32.0); Potassium 3.7 meq/L (3.5-5.1)
[2018-06-22] MEDS: Lactobacillus Acidophilus/L. Spores Tablet PO SCH ×2 (08:35→12:13)
[2018-06-22] MEDS: Senna/Docusate Sodium 8.6/50 MG Tablet PO SCH (08:35)
[2018-06-22 12:53] VITALS: PULSE 86; TEMP 97.8; O2SAT 96
--- NOTE | 2018-06-22 14:16 | P.DCO ---
- Physical Therapy Order: Evaluate and treat - Home Health Nursing Order: Medical education, Signs/symptoms of disease process, Medication education-adverse effect, Nursing assessment with vital signs - Home Health Aide Order: To assist in: Bathing and personal care, kindergartners helper and meal prep - Case Management Consult Yes - Certification I have seen patient Rochelle Cantu on 06/22/18. My clinical findings support the need for the requested home health care services because: Limited mobility due to disease progression, Patient has SOB, Deconditioned with increased weakness I certify that my clinical findings support that this patient is homebound because: Post-op weakness, Impaired cognitive ability/safety, Unsteady gait/balance
[2018-06-22 15:29] VITALS: BP 130/80
== END 2018-06-22 16:10 | disposition home health service (06) ==
LOC: NEPE 10:25 → NEDA 10:25 → N07 17:32
PROVIDERS: ADMIT Hospitalist; ATTEND Hospitalist